=== PATIENT | male | born 1950 | race Caucasian/White ===

== ENCOUNTER 2022-12-29 13:32 | Emergency (ER) | payer MEDICARE, OTHER, SELFPAY ==
[2022-12-29 13:38] VITALS: BP 149/84; PULSE 102; RESP 16; TEMP 36.9; O2SAT 96; BMI 33.0
[2022-12-29 15:11] VITALS: BP 133/108; PULSE 107; O2SAT 95
[2022-12-29 16:11] VITALS: BP 136/91; PULSE 86; O2SAT 95
--- NOTE | 2022-12-29 16:11 | ED_ITS ---
Documented by User: VILLA Duque 01/01/23 09:37 HPI - Back Pain/Injury General: Chief Complaint: Back Pain/Injury Stated Complaint: back pain Time Seen by Provider: 12/29/22 15:44 Source: patient Mode of arrival: ambulatory Limitations: no limitations History of Present Illness: MD elicited complaint: back pain Onset (ago): hour(s) Timing: constant Severity: severe Similar Symptoms Previously: No Location: right lower back Radiation: right upper leg Associated symptoms: Reports difficulty walking (secondary to pain); Deny chills, dysuria, fatigue or urinary urgency Work related injury: No Review of Systems Const: Denies: chills, body aches, fatigue or malaise : Denies: dysuria, urinary frequency, urinary urgency or urinary hesitancy Musc: Denies: neck pain, extremity swelling, joint pain, joint swelling, joint redness or joint warmth Neuro: Reports: difficulty walking (secondary to pain); Denies: headache(s), numbness in extremities, weakness in extremities, sensory changes or dizziness Physical Exam Const: COMMON NORMALS: average body habitus, patient oriented x3, no limitations, healthy appearing and well nourished GENERAL APPEARANCE: cooperative and in distress (appears uncomfortable ) ORIENTATION/CONSCIOUSNESS: Yes awake, Yes oriented to person, Yes oriented to place and Yes oriented to time Back/Pelvis: SACRUM: no tenderness COCCYX: no tenderness Extremity: COMMON NORMALS: normal to inspection, full ROM, capillary refill normal, no joint enlargement, no clubbing, cyanosis or edema, no calf tenderness and no pedal edema GENERAL: Yes normal exam except as noted Neuro: COMMON NORMALS: patient oriented x3 SENSORIUM/ORIENTATION: Yes oriented to person, Yes oriented to place and Yes oriented to time Course ED course: Patient is being given IV medications with plan for pain reassessment. Care transferred to LESTER Batres Vital Signs: Vital signs: Vital Signs Temperature 98.5 F 12/29/22 13:38 Pulse Rate 86 12/29/22 18:49 Respiratory Rate 16 12/29/22 13:38 Blood Pressure 135/88 12/29/22 18:49 Pulse Oximetry 96 12/29/22 18:49 Oxygen Delivery Me thod Room Air 12/29/22 18:49 Discharge Plan Discharge Patient Disposition: Home Clinical Impression: Sciatica Condition: Stable Prescriptions: New celecoxib 200 mg capsule 200 mg PO BID Qty: 20 0RF hydrocodone-acetaminophen 5-325 mg tablet 1 tab PO Q6H PRN (Reason: pain) Qty: 12 0RF methocarbamol 750 mg tablet 750 mg PO Q8H PRN (Reason: muscle spasm) Qty: 30 0RF Discharge Orders: Discharge ED (Routine); Ordered 12/29/22 Ordered By: Carlos Silveira Referrals: Juan Carlos Calero MD [Primary Care Provider] - Discharge Diet: Usual diet Discharge Activity: Increase activity as tolerated Patient Instructions: Back Pain (ED), Opioid Safety, Pain Management Activity Restrictions/Additional Instructions: Maintain activity as much as possible. Take medications as directed for pain and muscle spasms. Drink plenty of water with medications. Follow-up with primary care as needed. Return to ED for worsening symptoms such as high fever, inability to hold fluids down, shortness of breath, or new concerns. Sign Out Sign Out Data: Patient Sign Out occurred on 12/29/22 at 17:56. Patient's care was discussed, and care was transferred from to Carlos Silveira. Coding Level of Care Code ED Tomography Technologist for Chg Fwd Documented by User: LESTER Carrasco 12/29/22 19:24 HPI - Back Pain/Injury General: Chief Complaint: Back Pain/Injury Stated Complaint: back pain Time Seen by Provider: 12/29/22 15:44 History of Present Illness: Patient comes in today with complaints of right side sacroiliac pain radiating to his right hip on the outside and then around to his front of his thigh. Patient does have a history of back pain but this is different than his usual back pain. Patient also has a chronic medical history for coronary artery disease and BPH. Patient takes medications rosuvastatin and an injectable for high cholesterol, baby aspirin daily for coronary artery disease, tamsulosin and finasteride for BPH, pantoprazole for GERD, carvedilol for CAD. 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 Patient has worsening pain with movement. Patient denies any other symptoms. Patient stopped smoking nicotine tobacco in 2008, patient does state he uses cannabis daily. Associated symptoms: Deny fever(s), nausea or vomiting Review of Systems General: Reports: 10 or more systems reviewed and unremarkable except in HPI and below Const: Denies: fever(s) Card: Denies: chest pain Resp: Denies: dyspnea GI: Denies: nausea, vomiting, diarrhea or constipation : Denies: flank pain or difficulty urinating Musc: Reports: back pain Skin/Breast: Denies: rash Physical Exam Const: COMMON NORMALS: alert HENMT: COMMON NORMALS: normocephalic HEAD & SCALP: normocephalic Neck/C-Spine: COMMON NORMALS: full ROM Resp: COMMON NORMALS: normal respiratory effort and clear to auscultation bilaterally AUSCULTATION: clear to auscultation bilaterally Cardio: COMMON NORMALS: regular rate and regular rhythm RATE: regular rate RHYTHM: regular rhythm GI: COMMON NORMALS: Soft to palpation and non-tender PALPATION: Yes Soft to palpation : COMMON NORMALS: Yes no CVA tenderness BLADDER/KIDNEY EXAM: Yes no CVA tenderness Back/Pelvis: COMMON NORMALS: no CVA tenderness THORACIC SPINE/UPPER BACK: No thoracic spinal tenderness and No paraspinal muscle tenderness LUMBAR SPINE/LOWER BACK: Yes lumbar spinal tenderness Lumbar spinal tenderness location: L5 and Yes straight leg raise positive right Neuro: SENSORIUM/ORIENTATION: Yes alert Skin: COMMON NORMALS: turgor normal GENERAL SKIN EXAM: turgor normal Course Vital Signs: Vital signs: Vital Signs Temperature 98.5 F 12/29/22 13:38 Pulse Rate 86 12/29/22 18:49 Respiratory Rate 16 12/29/22 13:38 Blood Pressure 135/88 12/29/22 18:49 Pulse Oximetry 96 12/29/22 18:49 Oxygen Delivery Me thod Room Air 12/29/22 18:49 MDM - Back Pain/Injury Medical Decision Making 72-year-old male patient comes in today with complaints of low back pain radiating down his right leg. I received this patient from Carri Lester PA-C. On exam patient has no point tenderness along the thoracic or lumbar spine except at the L5-S1 area. Patient also has some mild tenderness along the right sacroiliac joint. Positive leg lift test on the right. Patient is able to ambulate but with antalgic gait. Differential diagnosis includes intervertebral disc disease, facet arthritis, sciatica, discitis. No signs of infection were noted. Patient was medicated with ketorolac, dexamethasone, morphine, and hydromorphone in the ER with some relief of pain. Patient was able to ambulate. Patient was discharged home with medications to continue pain care with celecoxib, hydrocodone, and methocarbamol. Patient was recommended to follow-up with primary care or return to the ER for worsening symptoms. Patient and family both reported understanding. No radiology studies performed this visit Discharge Plan Discharge Patient Disposition: Home Clinical Impression: Sciatica Condition: Stable Prescriptions: New celecoxib 200 mg capsule 200 mg PO BID Qty: 20 0RF hydrocodone-acetaminophen 5-325 mg tablet 1 tab PO Q6H PRN (Reason: pain) Qty: 12 0RF methocarbamol 750 mg tablet 750 mg PO Q8H PRN (Reason: muscle spasm) Qty: 30 0RF Discharge Orders: Discharge ED (Routine); Ordered 12/29/22 Ordered By: Carlos Silveira Referrals: Juan Carlos Calero MD [Primary Care Provider] - Discharge Diet: Usual diet Discharge Activity: Increase activity as tolerated Patient Instructions: Back Pain (ED), Opioid Safety, Pain Management Activity Restrictions/Additional Instructions: Maintain activity as much as possible. Take medications as directed for pain and muscle spasms. Drink plenty of water with medications. Follow-up with [facility] as needed. Return to ED for worsening symptoms such as high fever, inability to hold fluids down, shortness of breath, or new concerns. Sign Out Sign Out Data: Patient Sign Out occurred on 12/29/22 at 17:56. Patient's care was discussed, and care was transferred from to Carlos Silveira. Coding Level of Care Code ED Tomography Technologist for [facility]
[2022-12-29 16:22] VITALS: O2SAT 98
[2022-12-29] MEDS: ketorolac 30 mg/mL INJ 15 MG IVP (16:22)
[2022-12-29] MEDS: morphine 4 mg/mL SDV 1 mL IVP (16:22)
[2022-12-29] MEDS: dexamethasone 10 mg/mL INJ IV (16:23)
[2022-12-29] MEDS: orphenadrine 30 mg/mL Inj 2 mL 60 MG IV (16:24)
[2022-12-29 17:00] VITALS: BP 132/82; PULSE 81; O2SAT 94
[2022-12-29] MEDS: HYDROmorphone 1 mg/mL INJ 1 mL IVP (17:04)
[2022-12-29 18:49] VITALS: BP 135/88; PULSE 86; O2SAT 96
== END 2022-12-29 18:50 | disposition home or self-care (01) ==
PROVIDERS: Emergency Provider Nurse Practitioner Family; PCP Family Medicine
DX: M54.30 Sciatica, unspecified side (principal)
CPT/HCPCS: 96374; 96375; 99284; J1100; J1170; J1885; J2270; J2360

== ENCOUNTER 2022-12-31 21:36 | Emergency (ER) | payer MEDICARE, OTHER, SELFPAY ==
[2022-12-31 21:41] VITALS: PULSE 113; RESP 20; TEMP 36.6; O2SAT 98; BMI 27.0
--- NOTE | 2022-12-31 21:46 | CTR_ITS ---
PROCEDURE INFORMATION: Exam: CT Abdomen And Pelvis Without Contrast Exam date and time: 12/31/2022 10:03 PM Age: 72 years old Clinical indication: Abdominal pain; Right; Patient HX: C/O severe RT flank/lower back pain. ; Additional info: Right flank/back pain TECHNIQUE: Imaging protocol: Computed tomography of the abdomen and pelvis without contrast. Radiation optimization: All CT scans at this facility use at least one of these dose optimization techniques: automated exposure control; mA and/or kV adjustment per patient size (includes targeted exams where dose is matched to clinical indication); or iterative reconstruction. REPORTING DATA: Count of CT and Cardiac NM exams in prior 12 months: This patient has received 0 known CTs and 0 known cardiac nuclear medicine studies in the 12 months prior to the current study. COMPARISON: No relevant prior studies available. RADIATION DOSE METRICS: Total DLP (mGy-cm): 1962.95 FINDINGS: Lungs: 4 mm and 8 mm right lower lobe nodules. Coronary arteries: Coronary artery calcifications. Liver: Normal. No mass. Gallbladder and bile ducts: Normal. No calcified stones. No ductal dilation. Pancreas: Normal. No ductal dilation. Spleen: Normal. No splenomegaly. Adrenal glands: 1.5 cm right adrenal nodule, Hounsfield units greater than 25. Kidneys and ureters: Normal. No hydronephrosis. Stomach and bowel: Diverticulosis of the colon. No diverticulitis. The stomach and small bowel are unremarkable. No obstruction. Appendix: The appendix is visualized and is normal. Intraperitoneal space: Unremarkable. No free air. No significant fluid collection. Vasculature: Arterial calcifications. No aneurysm. Lymph nodes: Unremarkable. No enlarged lymph nodes. Urinary bladder: Unremarkable as visualized. Reproductive: Enlarged 5.8 cm prostate. Bones/joints: Degenerative changes of the spine. No fracture. Soft tissues: Unremarkable. CT/CT kidney stone [id number] IMPRESSION: 1. No acute findings. 2. Diverticulosis of the colon without diverticulitis. 3. Enlarged prostate. 4. Indeterminate 1.5 cm right adrenal nodule. Consider 12 month follow-up adrenal CT. (Reference: ManriqueBalbina) 5. Pulmonary nodules measuring up to 8 mm. For patients at low risk (minimal or absent history of smoking and of other known risk factors), recommend CT Chest at 3-6 months, then consider CT Chest at 18-24 months. For patients at high risk (history of smoking or of other known risk factors), recommend CT Chest at 3-6 months, then CT Chest at 18-24 months. (Reference: Claudia) References: Claudia Alanis et al. Guidelines for Management of Incidental Pulmonary Nodules Detected on CT Images: From the Fleischner Society 2017. Radiology. 2017;284(1):228-243. References: Deonte MANSFIELD, et al. Management of Incidental Adrenal Masses: A White Paper of the ACR Incidental Findings Committee. J Am Dulce Radiol. 2017;14(8):3300-1505.
--- NOTE | 2022-12-31 21:47 | ED_ITS ---
HPI - Back Pain/Injury General: Chief Complaint: Back Pain/Injury Stated Complaint: Back Pain Time Seen by Provider: 12/31/22 21:39 Source: patient Mode of arrival: ambulatory Limitations: no limitations History of Present Illness: 72-year-old male who states that he does have a history of back pain he was seen here 2 days ago diagnosed sciatica states been on pain meds steroids states he has had no improvement states having severe pain in his right lower back. Denies any midline pain. Denies any difficulty walking no problems with bowel or bladder movements. Rates his pain a 9 out of 10 currently. Associated symptoms: Deny abdominal pain, chills, dysuria, fever(s), nausea or vomiting Review of Systems Const: Denies: fever(s), chills, body aches or change in appetite ENMT: Denies: throat pain or dental pain Card: Denies: chest pain Resp: Denies: dyspnea GI: Denies: abdominal pain, nausea, vomiting or diarrhea : Denies: dysuria Musc: Reports: back pain; Denies: neck pain Skin/Breast: Denies: rash Neuro: Denies: headache(s) Physical Exam Const: COMMON NORMALS: patient oriented x3 HENMT: COMMON NORMALS: normocephalic and atraumatic HEAD & SCALP: normo cephalic and atraumatic Neck/C-Spine: COMMON NORMALS: full ROM and supple Chest: COMMONS NORMALS: normal inspection of the chest Resp: COMMON NORMALS: normal respiratory effort GI: COMMON NORMALS: Normal to inspection, nondistended, normoactive bowel sounds present, Soft to palpation, non-tender and no masses PALPATION: Yes Soft to palpation Back/Pelvis: OTHER: no midline tenderness. No saddle anesthesia Extremity: COMMON NORMALS: normal to inspection and full ROM Neuro: COMMON NORMALS: patient oriented x3, moves all extremities and no focal motor deficits Psych: COMMON NORMALS: mental status grossly normal, Normal thought process present and cooperative THOUGHT PROCESS: Normal thought process present Skin: COMMON NORMALS: no rashes or lesions noted and no wounds GENERAL SKIN EXAM: no rashes or lesions noted Course Vital Signs: Vital signs: Vital Signs Temperature 98 F 12/31/22 21:41 Pulse Rate 104 H 12/31/22 22:18 Respiratory Rate 16 12/31/22 22:18 Blood Pressure 118/94 12/31/22 22:18 Pulse Oximetry 96 12/31/22 22:18 MDM - Back Pain/Injury Medical Decision Making Patient presents with back pain likely sciatica its right side going down his leg he has no midline pain no signs of epidural abscess or cord compression CT scan here is normal he is stable for discharge she is to follow-up with his PCP and return if worsening he understands agrees to plan. Medical Records I reviewed the patient's medical records. Labs I reviewed the patient's lab results. 12/31/22 22:05 12/31/22 22:05 Radiology Impressions Abdomen/Pelvis CT 12/31/22 21:46 IMPRESSION: 1. No acute findings. 2. Diverticulosis of the colon without diverticulitis. 3. Enlarged prostate. 4. Indeterminate 1.5 cm right adrenal nodule. Consider 12 month follow-up adrenal CT. (Reference: Deonte) 5. Pulmonary nodules measuring up to 8 mm. For patients at low risk (minimal or absent history of smoking and of other known risk factors), recommend CT Chest at 3-6 months, then consider CT Chest at 18-24 months. For patients at high risk (history of smoking or of other known risk factors), recommend CT Chest at 3-6 months, then CT Chest at 18-24 months. (Reference: Claudia) References: Claudia H, et al. Guidelines for Management of Incidental Pulmonary Nodules Detected on CT Images: From the Fleischner Society 2017. Radiology. 2017;284(1):228-243. References: Deonte MANSFIELD, et al. Management of Incidental Adrenal Masses: A White Paper of the ACR Incidental Findings Committee. J Am Dulce Radiol. 2017;14(8):1032-3988. Laboratory Results WBC 7.14 10^3/uL (3.29-11.43) 12/31/22 22:05 RBC 5.53 10^6/uL (3.85-5.65) 12/31/22 22:05 Hgb 17.10 g/dL (11.27-16.99) H 12/31/22 22:05 Hct 51.2 % (37-53) 12/31/22 22:05 MCV 92.6 fl (82-101) 12/31/22 22:05 MCH 30.9 pg (27-33) 12/31/22 22:05 MCHC 33.4 g/dL (30-55) 12/31/22 22:05 RDW 14.0 % (12.1-15.1) 12/31/22 22:05 Plt Count 198 10^3/cmm (157-399) 12/31/22 22:05 MPV 10.8 fL (7.4-10.4) H 12/31/22 22:05 Neut % (Auto) 56.7 % 12/31/22 22:05 Lymph % (Auto) 33.5 % 12/31/22 22:05 Beckham % (Auto) 6.9 % 12/31/22 22:05 Eos % (Auto) 2.0 % 12/31/22 22:05 Baso % (Auto) 0.6 % 12/31/22 22:05 Neut # (Auto) 4.06 10^3/uL (1.8-7.7) 12/31/22 22:05 Lymph # (Auto) 2.4 10^3/uL (0.8-4.8) 12/31/22 22:05 Beckham # (Auto) 0.5 10^3/uL (0.2-0.9) 12/31/22 22:05 Eos # (Auto) 0.1 10^3/uL (0.0-0.8) 12/31/22 22:05 Baso # (Auto) 0.0 10^3/uL (0.0-0.1) 12/31/22 22:05 Nucleated RBC % (auto) 0 % 12/31/22 22:05 Nucleated RBCs # 0.0 /100WBC 12/31/22 22:05 Sodium 140 mmol/L (136-145) 12/31/22 22:05 Potassium 4.2 mmol/L (3.5-5.1) 12/31/22 22:05 Chloride 107 mmol/L (98-107) 12/31/22 22:05 Carbon Dioxide 20 mmol/L (22-29) L 12/31/22 22:05 Anion Gap 17.2 (5-19) 12/31/22 22:05 BUN 15 mg/dL (8-23) 12/31/22 22:05 Creatinine 1.2 mg/dL (0.7-1.2) 12/31/22 22:05 GFR Calculation Not Reportable 12/31/22 22:05 Glucose 106 mg/dL (65-115) 12/31/22 22:05 Calculated Osmolality 291 mOsm/kg (285-295) 12/31/22 22:05 Calcium 9.6 mg/dL (8.5-10.5) 12/31/22 22:05 Total Bilirubin 0.4 mg/dL (0.15-1.2) 12/31/22 22:05 AST 15 U/L (0-40) 12/31/22 22:05 ALT 16 U/L (0-41) 12/31/22 22:05 Alkaline Phosphatase 66 U/L (40-130) 12/31/22 22:05 Total Protein 7.5 g/dL (6.6-8.7) 12/31/22 22:05 Albumin 4.3 g/dL (3.5-5.2) 12/31/22 22:05 Globulin 3.2 g/dL (1.3-4.6) 12/31/22 22:05 Urine Color Yellow (Yellow) 12/31/22 22:30 Urine Appearance Clear (CLEAR) 12/31/22 22:30 Urine pH 5 (5-7) 12/31/22 22:30 Ur Specific [place] 1.020 (1.005-1.030) 12/31/22 22:30 Urine Protein Neg (Negative) 12/31/22 22:30 Urine Glucose (UA) Norm (Normal) 12/31/22 22:30 Urine Ketones Negative (Negative) 12/31/22 22:30 Urine Blood Neg (Negative) 12/31/22 22:30 Urine Nitrate Negative (Negative) 12/31/22 22:30 Urine Bilirubin 1+ (Negative) H 12/31/22 22:30 Urine Urobilinogen 1 mg/dL (Negative) H 12/31/22 22:30 Ur Leukocyte Esterase Negative (Negative) 12/31/22 22:30 All radiology interpretation(s) finalized by discharge Discharge Plan Discharge Patient Disposition: Home Clinical Impression: Sciatica Condition: Stable Prescriptions: No Action celecoxib 200 mg capsule 200 mg PO BID Qty: 20 0RF hydrocodone-acetaminophen 5-325 mg tablet 1 tab PO Q6H PRN (Reason: pain) Qty: 12 0RF methocarbamol 750 mg tablet 750 mg PO Q8H PRN (Reason: muscle spasm) Qty: 30 0RF Discharge Orders: Discharge ED (Routine); Ordered 12/31/22 Ordered By: Brandon Thomas Referrals: Juan Carlos Calero MD [Primary Care Provider] - 1-3 days Discharge Diet: Advance as tolerated Discharge Activity: As per PT/OT instructions Patient Instructions: Sciatica (ED) Coding Level of Care Code ED Hvac Service Technician for [facility] R Woodward
[2022-12-31] MEDS: HYDROmorphone 1 mg/mL INJ 1 mL IVP (21:56)
[2022-12-31] MEDS: ondansetron 2 mg/ML SDV 2 mL 4 MG IVP (21:57)
[2022-12-31 22:16] LABS: Basophils % 0.6 %; Eosinophils # 0.1 10^3/uL (0.0-0.8); Hematocrit 51.2 % (37-53); Lymphocytes # 2.4 10^3/uL (0.8-4.8); Lymphocytes % 33.5 %; Mean Corpuscular HGB Conc 33.4 g/dL (30-55); Mean Corpuscular Hemoglobin 30.9 pg (27-33); Mean Corpuscular Volume 92.6 fl (82-101); Mean Platelet Volume 10.8 fL (7.4-10.4); Monocytes # 0.5 10^3/uL (0.2-0.9); Monocytes % 6.9 %; Neutrophils # 4.06 10^3/uL (1.8-7.7); Neutrophils % 56.7 %; Nucleated Red Blood Cells % 0 %; Platelet Count 198 10^3/cmm (157-399); Red Blood Count 5.53 10^6/uL (3.85-5.65); White Blood Count 7.14 10^3/uL (3.29-11.43)
[2022-12-31 22:18] VITALS: BP 118/94; PULSE 104; RESP 16; O2SAT 96
[2022-12-31] MEDS: sodium chloride 0.9% 1,000 ML 999 ML IV (22:23)
[2022-12-31] MEDS: morphine 4 mg/mL SDV 1 mL IVP (22:23)
[2022-12-31 22:35] LABS: Alanine Aminotransferase 16 U/L (0-41); Albumin Level 4.3 g/dL (3.5-5.2); Alkaline Phosphatase 66 U/L (40-130); Anion Gap 17.2 (5-19); Aspartate Amino Transferase 15 U/L (0-40); Blood Urea Nitrogen 15 mg/dL (8-23); Calcium 9.6 mg/dL (8.5-10.5); Carbon Dioxide 20 mmol/L (22-29); Chloride 107 mmol/L (98-107); Globulin 3.2 g/dL (1.3-4.6); Glucose 106 mg/dL (65-115); Osmolality Calculated 291 mOsm/kg (285-295); Potassium 4.2 mmol/L (3.5-5.1); Sodium 140 mmol/L (136-145); Total Bilirubin 0.4 mg/dL (0.15-1.2); Total Protein 7.5 g/dL (6.6-8.7)
[2022-12-31 22:42] LABS: Add Urine Microscopic? NO; Charge for UA Resulting for Rev
[2022-12-31 22:45] LABS: Bilirubin Urine 1+ (Negative); Blood Urine Neg (Negative); Glucose Urine UA Norm (Normal); Ketones Urine Negative (Negative); Leukocyte Esterase Urine Negative (Negative); Nitrate Urine Negative (Negative); Protein Urine Neg (Negative); Urine Appearance Clear (CLEAR); Urine Color Yellow (Yellow); Urobilinogen Urine 1 mg/dL (Negative); pH Urine 5 (5-7)
[2022-12-31] MEDS: dexamethasone 10 mg/mL INJ IVP (23:13)
[2022-12-31 23:27] VITALS: BP 118/94; PULSE 104; RESP 16; TEMP 36.6; O2SAT 96
== END 2022-12-31 23:28 | disposition home or self-care (01) ==
PROVIDERS: Emergency Provider Emergency Medicine; PCP Family Medicine
DX: M54.30 Sciatica, unspecified side (principal)
CPT/HCPCS: 74176; 80053; 81003; 85025; 96361; 96374; 96375; 99285; J1100; J1170; J2270; J2405; J7030

== ENCOUNTER 2023-01-02 20:45 | Emergency (ER) | payer MEDICARE, OTHER, SELFPAY ==
[2023-01-02 20:57] VITALS: BP 170/93; PULSE 102; RESP 16; TEMP 36.6; O2SAT 93; BMI 26.3
--- NOTE | 2023-01-02 22:18 | CTR_ITS ---
PROCEDURE INFORMATION: Exam: CT Lumbar Spine Without Contrast Exam date and time: 01/02/2023 11:00 PM Age: 72 years old Clinical indication: Low back pain and sciatica; Right; Patient HX: Severe low back pain radiating down RT lower ext. Recently diagnosed with sciatica. ; Additional info: Back pain with radiculopathy TECHNIQUE: Imaging protocol: Computed tomography of the lumbar spine without contrast. Radiation optimization: All CT scans at this facility use at least one of these dose optimization techniques: automated exposure control; mA and/or kV adjustment per patient size (includes targeted exams where dose is matched to clinical indication); or iterative reconstruction. REPORTING DATA: Count of CT and Cardiac NM exams in prior 12 months: This patient has received [address] and 0 known cardiac nuclear medicine studies in the 12 months prior to the current study. COMPARISON: CT kidney stone [id number] 12/31/2022 10:03 PM RADIATION DOSE METRICS: Total DLP (mGy-cm): 1147.18 FINDINGS: Bones/joints: Slight leftward lumbar curvature. Stable chronic depression of the inferior L4 endplate. No acute compression fracture. Mild anterior degenerative endplate changes at L2-L3 through L4-L5 with mild anterior spurring. The facets are intact with mild degenerative changes. L1-L2: No significant disc bulge or herniation. No severe spinal canal stenosis. No significant neural foraminal narrowing. L2-L3: Trace circumferential disc bulge. Mild ligamentum flavum hypertrophy. Mild central canal stenosis. No foraminal stenosis. L3-L4: Mild circumferential disc bulge. Mild ligamentum flavum hypertrophy. Mild central canal stenosis. Mild bilateral foraminal stenosis. L4-L5: Circumferential disc bulge. Degenerative facets with ligamentum flavum hypertrophy. Severe central canal stenosis. Mild bilateral foraminal stenosis. L5-S1: Trace posterior disc bulge. No foraminal stenosis. No central canal stenosis. Soft tissues: Unremarkable. CT/CT lumbar spine wo con* [id number] IMPRESSION: 1. No fracture or acute findings. 2. Degenerative changes with severe central canal stenosis at L4-L5. 3. No greater than mild foraminal stenosis at any level.
--- NOTE | 2023-01-02 22:20 | W.ED.BACK ---
HPI - Back Pain/Injury General: Chief Complaint: Back Pain/Injury Stated Complaint: pain side of right leg. and back Time Seen by Provider: 01/02/23 21:18 History of Present Illness: Rasheed Cantu is a 72-year-old man that presents to the emergency department with complaints of lumbar back pain that radiates down the right lower extremity. Patient was seen approximately 2 days ago and was treated for sciatica. Patient states that his pain meds have given him some relief but he has run through all of his pain medications and his pain is returned. Patient is tearful and anxious with regards to the pain He describes it as constant deep pain and denies numbness and tingling. He has trialed a TENs unit and this has helped some. Patient reports pain falls along the lateral aspect of the right thigh and past the knee into the calf. Review of Systems General: Reports: 10 or more systems reviewed and unremarkable except in HPI and below Physical Exam Const: COMMON NORMALS: patient oriented x3 HENMT: COMMON NORMALS: normocephalic and atraumatic HEAD & SCALP: normocephalic and atraumatic Neck/C-Spine: COMMON NORMALS: full ROM and supple Chest: COMMONS NORMALS: normal inspection of the chest Resp: COMMON NORMALS: normal respiratory effort GI: COMMON NORMALS: Normal to inspection, nondistended, normoactive bowel sounds present, Soft to palpation, non-tender and no masses PALPATION: Yes Soft to palpation Back/Pelvis: OTHER: no midline tenderness. No saddle anesthesia 5/5 strength in hip flexor, quad, gastroc, anterior tibialis Denies numbness and tingling in the extremity Pain is localized to the L4/L5 distribution Extremity: COMMON NORMALS: normal to inspection and full ROM Neuro: COMMON NORMALS: patient oriented x3, moves all extremities and no focal motor deficits Psych: COMMON NORMALS: mental status grossly normal, Normal thought process present and cooperative THOUGHT PROCESS: Normal thought process present Skin: COMMON NORMALS: no rashes or lesions noted and no wounds GENERAL SKIN EXAM: no rashes or lesions noted Course Vital Signs: Vital signs: Vital Signs Temperature 97.9 F 01/02/23 20:57 Pulse Rate 102 H 01/02/23 20:57 Respiratory Rate 24 H 01/02/23 23:28 Blood Pressure 170/93 01/02/23 20:57 Pulse Oximetry 96 01/02/23 23:28 Oxygen Delivery Me thod Room Air 01/02/23 20:57 MDM - Back Pain/Injury Medical Decision Making Patient was evaluated in the emergency department on the and returns today. Patient presents complaining of lumbar back pain that radiates down the right lower extremity. Patient underwent a CT of the lumbar spine which reveals severe degenerative disc disease with disc osteophyte complex that causes severe central canal stenosis at L4/L5. This correlates clinically with the patient's radiculopathy that is isolated in the right lower extremity. He denies any saddle paresthesias and has no weakness. We were able to decrease his pain with Norflex, Decadron, Toradol, hydromorphone and gabapentin. We were able to achieve adequate pain control. We are going to discharge him home with Medrol Dosepak, Percocet, gabapentin. Patient still has Celebrex and Robaxin at home. Patient is to follow-up with his PCP on Wednesday. Call for an appointment Wednesday. Patient is to return to the emergency department for new, concerning, worsening symptom Labs Radiology Impressions Lumbar Spine CT 01/02/23 22:18 IMPRESSION: 1. No fracture or acute findings. 2. Degenerative changes with severe central canal stenosis at L4-L5. 3. No greater than mild foraminal stenosis at any level. All radiology interpretation(s) finalized by discharge Discharge Plan Discharge Patient Disposition: Home Clinical Impression: Lumbar radiculopathy, Degenerative lumbar spinal stenosis, Disc-osteophyte complex, Foraminal stenosis due to intervertebral disc disease Condition: Stable Prescriptions: New oxycodone-acetaminophen [Percocet] 5-325 mg tablet 1 tab PO Q4-5H PRN (Reason: pain) 3 Days Qty: 16 0RF gabapentin 300 mg capsule 300 mg PO Q8H Qty: 30 0RF methylprednisolone [Medrol (Diego)] 4 mg tablets,dose pack See Rx Instructions .ROUTE .COMPLEX Qty: 21 0RF Rx Instructions: orally per package directions No Action celecoxib 200 mg capsule 200 mg PO BID Qty: 20 0RF hydrocodone-acetaminophen 5-325 mg tablet 1 tab PO Q6H PRN (Reason: pain) Qty: 12 0RF methocarbamol 750 mg tablet 750 mg PO Q8H PRN (Reason: muscle spasm) Qty: 30 0RF Discharge Orders: Discharge ED (Routine); Ordered 01/03/23 Ordered By: Venus Madison Referrals: Juan Carlos Calero MD [Primary Care Provider] - Discharge Diet: Advance as tolerated Discharge Activity: Resume usual activity Patient Instructions: Lumbar Radiculopathy (ED), Opioid Safety, Pain Management Activity Restrictions/Additional Instructions: Follow-up with your doctor. Call Wednesday for an appointment. You will likely need an MRI to further evaluate your back and lower extremity complaints Coding Level of Care Code ED Client Engagement Specialist for Maria R Woodward
[2023-01-02] MEDS: gabapentin 300 mg Capsule PO (22:32)
[2023-01-02] MEDS: ketorolac 30 mg/mL INJ 15 MG IVP (22:33)
[2023-01-02] MEDS: orphenadrine 30 mg/mL Inj 2 mL 60 MG IVP (22:34)
[2023-01-02] MEDS: dexamethasone 10 mg/mL INJ IVP (22:36)
[2023-01-02 23:28] VITALS: RESP 24; O2SAT 96
[2023-01-02] MEDS: HYDROmorphone 1 mg/mL INJ 1 mL IVP (23:28)
[2023-01-03] MEDS: gabapentin 300 mg Capsule 600 MG PO (00:12)
[2023-01-03] MEDS: HYDROmorphone 1 mg/mL INJ 1 mL IVP (00:13)
[2023-01-03 01:34] VITALS: BP 156/94; O2SAT 92
== END 2023-01-03 01:04 | disposition home or self-care (01) ==
PROVIDERS: Emergency Provider Nurse Practitioner; PCP Family Medicine
DX: M48.061 Spinal stenosis, lumbar region without neurogenic claudication (principal); M25.78 Osteophyte, vertebrae; M51.16 Intervertebral disc disorders with radiculopathy, lumbar region
CPT/HCPCS: 72131; 96374; 96375; 96376; 99285; J1100; J1170; J1885; J2360

== ENCOUNTER 2023-01-06 12:29 | Outpatient (CLI) | payer MEDICARE, OTHER, SELFPAY ==
--- NOTE | 2023-01-06 13:00 | MR_ITS ---
WS: [id number] MRI LUMBAR SPINE NONCONTRAST HISTORY: lumbar pain, low back pain down RIGHT leg. COMPARISON: CT lumbar spine 01/02/2023 TECHNIQUE: Sagittal and axial multisequence imaging is submitted. Disc and osteophyte encroachment upon the cervical cord at C5-6. Normal lumbar alignment with no compression fractures or marrow edema. Disc spaces and vertebral body heights are well-preserved. Conus terminates normally at L1-2 disc level. L1-L2: Normal. L2-L3: Mild annular disc bulging with mild ligamentum flavum and facet arthritis. Disc encroachment u aleksandr the traversing L3 nerve roots, bilateral. L3-L4: Marked annular disc bulging with ligamentum flavum and facet arthritis. Disc contacts the vent ral thecal sac and the traversing L4 nerve roots in the subarticular recesses. Complete effacement of fat in the RIGHT foramen. Moderate central, bilateral subarticular recess and LEFT foraminal stenosi s. More severe RIGHT foraminal stenosis. L4-L5: Diffuse annular disc bulging with a central disc protrusion. Ligamentum flavum and facet arthr itis. Disc encroaches into the subarticular recesses contacting the L5 nerve roots. Severe central, b ilateral subarticular recess and at least moderate bilateral foraminal stenosis, RIGHT greater than L EFT. There is disc contacting both the L4 and L5 nerve roots at this level. L5-S1: Mild disc bulging. Disc very slightly contacts the S1 nerve roots bilaterally but no displacem ent. No significant stenosis. IMPRESSION: 1. L3-4: Moderate central, bilateral subarticular recess and LEFT foraminal stenosis. More severe RIG HT foraminal stenosis as there is complete effacement of fat in the neural foramen due to disc and fa cet disease. Suspect additional protrusion in the RIGHT foramen. 2. L4-5: Severe central, bilateral subarticular recess and moderate foraminal stenosis, RIGHT greater than LEFT. Disc contacts the L4 and L5 nerve roots. 3. L5-S1: Mild disc contact on the S1 nerve roots. 4. L2-3: Minimal disc encroachment upon the traversing L3 nerve roots.
== END 2023-01-06 12:30 | disposition home or self-care (01) ==
LOC: RAD 12:29
PROVIDERS: PCP Family Medicine; Visit Provider Orthopaedic Surgery
DX: M48.061 Spinal stenosis, lumbar region without neurogenic claudication (principal); M51.9 Unspecified thoracic, thoracolumbar and lumbosacral intervertebral disc disorder; M47.816 Spondylosis without myelopathy or radiculopathy, lumbar region
CPT/HCPCS: 72148

== ENCOUNTER → 2023-01-07 15:04 | Outpatient (BNVA) | payer MEDICARE, OTHER, SELFPAY | PROVIDERS: PCP Family Medicine; Visit Provider Orthopaedic Surgery | DX: M54.16 Radiculopathy, lumbar region (principal); M48.062 Spinal stenosis, lumbar region with neurogenic claudication | CPT/HCPCS: 36415; 72110; 80053; 81003; 85025; 99204 ==

== ENCOUNTER 2023-01-15 15:04 | Inpatient (IN) | payer MEDICARE, OTHER, SELFPAY ==
[2023-01-15] VITALS (27 sets, daily range): BP systolic 104–177; BP diastolic 68–119; PULSE 66–115; RESP 16–22; TEMP 36.1–37.1; O2SAT 85–99; BMI 26.3
--- NOTE | 2023-01-15 | XR_ITS ---
WS: [id number] Lumbar spine, C ARM fluoroscopy, 01/15/2023 Clinical Data: decompression, or pic Comparison: Lumbar spine, 01/07/2023 Findings: Dr. Troy performed a lumbar decompression. Impression: Lumbar decompression.
[2023-01-15] MEDS: ondansetron 2 mg/ML SDV 2 mL 4 MG IVP ×2 (08:33→13:42)
[2023-01-15] MEDS: sodium chloride 0.9% 1,000 ML 30 ML IV (08:33)
[2023-01-15] MEDS: HYDROmorphone 1 mg/mL INJ 1 mL 0.5 MG IVP ×6 (08:33→13:15)
[2023-01-15] MEDS: acetaminophen 1,000 MG/100 ML PIGGYBACK 400 MG IV (09:21)
--- NOTE | 2023-01-15 09:59 | W.PM.OPSUD ---
Surgery/Procedure H&P Update DATE OF PROCEDURE: January 15, 2023 DATE H&P PERFORMED: 01/07/23 H&P UPDATE INFORMATION: I have reviewed H&P completed within last 30 days, I have examined patient prior to procedure and No changes to prior documentation PREOP DIAGNOSIS: Lumbar stenosis with neurogenic claudication PLANNED PROCEDURE: Operation Date: 01/15/23 11:10 Proposed Procedures p Lumbar Spine Decompression Lumbar Decompression(Right) - Germán Troy DO
--- NOTE | 2023-01-15 10:07 | ANES.PREANE2 ---
Pre-Anesthetic Assessment Height/Weight: Height 1.88 m Weight 93 kg Temp Pulse Resp BP Pulse Ox O2 Del Method 97.2 F L 79 20 H 131/89 98 Room Air 01/15/23 08:15 01/15/23 09:07 01/15/23 09:07 01/15/23 09:07 01/15/23 09:07 01/15/23 09:07 Preop Diagnosis: Lumbar stenosis with neurogenic claudication Operation Date: 01/15/23 11:10 Proposed Procedures p Lumbar Spine Decompression Lumbar Decompression(Right) - Germán Troy DO Familial anesthetic complications: none Was Beta Mamie taken within 24 hours: Yes Was Clonidine taken within 24 hours: N/A Last intake: Intake Last Liquid Date 01/14/23 Last Liquid Time 20:00 Last Solid Date 01/14/23 Last Solid Time 16:30 Social Tobacco and No alcohol Exam alert, oriented x 3 and regular rate & rhythm Airway Submandibular: within normal limits Cervical ROM: within normal limits Mallampati: Class II Dentition: false Pulmonary Chronic Obstructive Pulmonary Disease CV/HEM Coronary Artery Disease (stentX2), Hypertension and Myocardial Infarction Chronic Renal Insufficiency GI Gastroesophageal Reflux Disease Metabolic Hyperlipidemia [facility] Lower Back Pain and Osteoarthritis/DJD appears in acute distress, writhing in pain Anesthetic Plan ASA status: 3 Anesthesia: General Medications/Allergies Home Medications Medication Instructions Recorded Confirmed Last Taken Type alirocumab 75 mg/mL subcutaneous See Rx Instructions .Route .COMPLEX 01/14/23 01/14/23 01/08/23 History pen injector (Praluent Pen) aspirin 81 mg tablet,delayed 81 mg PO DAILY 01/14/23 01/14/23 Unknown History release carvedilol 3.125 mg tablet 3.125 mg PO 1XD 01/14/23 01/14/23 01/15/23 History finasteride 5 mg tablet 5 mg PO 1XD 01/14/23 01/14/23 01/14/23 History fluticasone fur. 100 mcg-umeclid See Rx Instructions .Route .COMPLEX 01/14/23 01/14/23 01/15/23 History 62.5 mcg-vilant 25 mcg inhalat.powder (Trelegy Ellipta) ketoconazole 2 % shampoo See Rx Instructions .Route .COMPLEX 01/14/23 01/14/23 01/13/23 History oxycodone-acetaminophen 10 mg-325 10 tab PO DIRECTED PRN Pain 01/14/23 01/14/23 01/15/23 History mg tablet (Scale Score 7-10) pantoprazole 40 mg tablet,delayed 40 mg PO 1XD 01/14/23 01/14/23 01/15/23 History release rosuvastatin 20 mg tablet 20 mg PO 1XD 01/14/23 01/14/23 01/14/23 History tamsulosin 0.4 mg capsule 0.4 mg PO 1XD 01/14/23 01/14/23 01/14/23 History Allergies Allergy/AdvReac Type Severity Reaction Status Date / Time No Known Allergies Allergy Verified 01/14/23 14:15 Current Medications Generic Name Dose Route Start Last Admin Trade Name Freq PRN Reason Stop Dose Admin Hydromorphone HCl 0.5 mg 01/15/23 08:10 01/15/23 08:57 Hydromorphone 1 Mg/Ml Inj 1 Ml IVP 0.5 mg ONCE PRN Administration For preop pain/anxiety Sodium Chloride 1,000 mls @ 30 mls/hr 01/15/23 08:15 01/15/23 08:33 Sodium Chloride 0.9% IV 01/16/23 08:14 30 mls/hr .Q24H DANELLE Administration Ondansetron HCl 4 mg 01/15/23 08:10 01/15/23 08:33 Ondansetron 2 Mg/Ml Sdv 2 Ml IVP 4 mg ONCE PRN Administration NAUSEA AND VOMITING Data Anesthesia Cardiac Studies: No Data to Display
[2023-01-15] MEDS: ceFAZolin 2,000 MG in sodium chloride 0.9% (plus) 50 ML 100 MG IV ×2 (10:56→19:40)
[2023-01-15] MEDS: lidocaine-epi 1% 20 mL INJ INJECTION (11:19)
[2023-01-15] MEDS: thrombin 5,000 unit SDV 5000 UNIT XX (11:31)
--- NOTE | 2023-01-15 12:19 | PM.OP ---
Operative Report Date of procedure: January 15, 2023 Pre-op diagnosis: Lumbar stenosis with neurogenic claudication Post-op diagnosis: same Procedure done: 1. L3-4 laminectomy with partial facetectomy 2. L4-5 laminectomy with partial facetectomy Surgeon: Germán Troy DO Estimated blood loss (mL): 10 Procedure: 1. L3-4 laminectomy with partial facetectomy 2. L4-5 laminectomy with partial facetectomy Patient is brought to the operative suite. After undergoing anesthesia they are placed in the prone position. All areas of impingement are well padded. Patient is then prepped and draped in the normal sterile fashion. A skin incision is made over the L3/4 level. This is confirmed under c-arm guidance. A series of dilators are passed and the tubular retractor is docked on the L3 lamina. A bovie is used to clear the soft tissue off the lamina and the L 3/4 facet joint. A high speed erika is then used to perform the laminectomy and take down the medial aspect of the L 3/4 facet joint. A kerrison rongeure was then used to take down the remaining lamina and smooth the edge of the laminectomy up to the point where the ligamentum flavum attaches. Attention was then brought to the medial aspect of the facet joint. The remaining medial aspect of the superior and inferior aspect of the facet joint were taken down with the kerrison from the pedicle of L3 to L 4. The facet joint had significant hypertrophy. Attention was then brought to the Ligamentum Flavum. The ligament was taken down from the lamina of L3 to L4 and out medially to the remaining facet joint. The ligament was thick. The dura was then exposed. The dura was in good repair. The L3 nerve was then traced with a curette out the L3/4 foramen and found to be adequately decompressed. The L4 nerve was traced with a curette around the L4 pedicle. The lateral recess was opened with a kerrison helping to further decompress the L4 nerve. Wound is then irrigated copiously with saline and surgiflo is used to stop any bleeding. The tubular retractor is removed and the A skin incision is made over the L4/5 level. This is confirmed under c-arm guidance. A series of dilators are passed and the tubular retractor is docked on the L4 lamina. A bovie is used to clear the soft tissue off the lamina and the L 4/5 facet joint. A high speed erika is then used to perform the laminectomy and take down the medial aspect of the L 4/5 facet joint. A kerrison rongeure was then used to take down the remaining lamina and smooth the edge of the laminectomy up to the point where the ligamentum flavum attaches. Attention was then brought to the medial aspect of the facet joint. The remaining medial aspect of the superior and inferior aspect of the facet joint were taken down with the kerrison from the pedicle of L4 to L 5. The facet joint had significant hypertrophy. Attention was then brought to the Ligamentum Flavum. The ligament was taken down from the lamina of L4 to L5 and out medially to the remaining facet joint. The ligament was thick. The dura was then exposed. The dura was in good repair. The L4 nerve was then traced with a curette out the L4/5 foramen and found to be adequately decompressed. The L5 nerve was traced with a curette around the L5 pedicle. The lateral recess was opened with a kerrison helping to further decompress the L5 nerve. Wound is then irrigated copiously with saline and surgiflo is used to stop any bleeding. The tubular retractor is removed and the wound is closed with vicryl and monocryl suture. Glue is then used to protect the wound. A sterile dressing is then placed. Patient was then placed in the supine position and transferred to the PACU in stable condition.
[2023-01-15] MEDS: fentaNYL 50 mcg/mL INJ 2mL IVP ×2 (12:40→12:45)
[2023-01-15] MEDS: ketorolac 30 mg/mL INJ IVP ×2 (13:43→22:43)
[2023-01-15] MEDS: morphine 4 mg/mL SDV 1 mL 2 MG IVP (13:45)
[2023-01-15] MEDS: oxyCODONE 5 mg IR Tab/Cap PO ×2 (13:49→19:40)
[2023-01-15] MEDS: diazePAM 5 mg Tablet PO (13:56)
--- NOTE | 2023-01-15 14:44 | ANE.PACU2 ---
Inpatient post-anesthesia follow up: Airway intact: Yes Vital signs: Temperature 97 F Pulse Rate 66 Respiratory Rate 20 Blood Pressure 115/78 Pulse Oximetry 94 Oxygen Delivery Me thod Room Air Oxygen Flow Rate Fraction of Inspir ed Oxygen Hydration adequate: Yes Nausea and vomiting: No Pain level: 5 Mental status: Baseline
[2023-01-15] MEDS: oxyCODONE 10 mg ER (12 HR) Tablet PO (17:00)
[2023-01-15] MEDS: docusate sodium 100 mg Capsule PO (17:00)
[2023-01-15] MEDS: lactated ringers 1,000 ML 90 ML IV (17:49)
[2023-01-15] MEDS: atorvastatin 40 mg Tablet PO (19:40)
[2023-01-15] MEDS: budesonide 0.5 mg/2 mL Neb INHALATION (20:34)
[2023-01-16 00:11] VITALS: RESP 20
[2023-01-16] MEDS: oxyCODONE 5 mg IR Tab/Cap PO ×2 (00:11→06:50)
[2023-01-16] MEDS: lactated ringers 1,000 ML 90 ML IV (04:48)
[2023-01-16] MEDS: ceFAZolin 2,000 MG in sodium chloride 0.9% (plus) 50 ML 100 MG IV (04:48)
[2023-01-16 05:00] VITALS: BP 100/59; PULSE 78; RESP 18; TEMP 36.2; O2SAT 93
[2023-01-16] MEDS: calcium carbonate 500 mg Chew Tablet PO (05:29)
[2023-01-16 06:50] VITALS: RESP 17
[2023-01-16 08:00] VITALS: BP 105/65; PULSE 74; RESP 20; TEMP 36.4; O2SAT 94
[2023-01-16 08:12] VITALS: PULSE 78; RESP 16; O2SAT 93
[2023-01-16] MEDS: docusate sodium 100 mg Capsule PO (08:55)
[2023-01-16] MEDS: tamsulosin 0.4 mg Capsule PO (08:55)
[2023-01-16] MEDS: carvedilol 3.125 mg Tablet PO (08:55)
[2023-01-16] MEDS: finasteride 5 mg Tablet PO (08:55)
[2023-01-16] MEDS: pantoprazole DR 40 mg Tablet PO (08:55)
--- NOTE | 2023-01-16 09:16 | PM.DCS ---
Discharge Providers Date of Admission: 01/15/23 15:04 Date of Discharge: January 16, 2023 Attending Provider at Admission: Germán Troy DO Attending Provider at Discharge: Germán Troy DO Primary Care Provider: Juan Carlos Calero MD Reason for Visit Reason for Visit: M48.062 Physical Exam Narrative: Patient right leg pain is completely gone patient's back pain is much improved. He is in significantly less pain at this point. Plan will be to discharge him home today. Discharge Data Studies Completed and Pending Completed Studies During Hospitalization Category Date Time Status XR lumbar spine 1V [id number] Routine Exams 01/15/23 Completed Vitals Last Vital Signs Temp 97.1 F L 01/16/23 05:00 Pulse 78 01/16/23 08:12 Resp 16 01/16/23 08:12 BP 100/59 01/16/23 05:00 Pulse Ox 93 01/16/23 08:12 O2 Del Method Room Air 01/16/23 08:12 O2 Flow Rate 2 01/15/23 20:35 Discharge Plan Discharge Patient Disposition: Home Condition: Stable Prescriptions: New oxycodone 10 mg tablet 10 - 20 mg PO Q4H PRN (Reason: pain) 7 Days Qty: 40 0RF Continued aspirin 81 mg tablet,delayed release (DR/EC) 81 mg PO DAILY ketoconazole 2 % shampoo See Rx Instructions .ROUTE .COMPLEX Rx Instructions: see directions carvedilol 3.125 mg tablet 3.125 mg PO 1XD oxycodone-acetaminophen 10-325 mg tablet 10 tab PO DIRECTED PRN (Reason: Pain (Scale Score 7-10)) tamsulosin 0.4 mg capsule 0.4 mg PO 1XD pantoprazole 40 mg tablet,delayed release (DR/EC) 40 mg PO 1XD finasteride 5 mg tablet 5 mg PO 1XD rosuvastatin 20 mg tablet 20 mg PO 1XD Praluent Pen 75 mg/mL pen injector See Rx Instructions .ROUTE .COMPLEX Rx Instructions: as directed Trelegy Ellipta 100-62.5-25 mcg blister with device See Rx Instructions .ROUTE .COMPLEX Rx Instructions: see directions Discharge Orders: Discharge Order (Routine); Ordered 01/16/23 Ordered By: Germán Troy Discharge Diet: Advance as tolerated Discharge Activity: Limit activity as instructed Activity Restrictions/Additional Instructions: [facility] The following is a list of instructions, from your provider, to follow upon your discharge to ensure you have the optimal recovery from your recent injury orsurgery. Follow-up care is a ortega part of your treatment and safety. Be sure to make and go to all appointments, and call your doctor if you are having problems. If you do not already have a follow-up appointment made, call Dr. Troy office in the next 1-3 days to make follow up appointment for 2 weeks at [phone]. It is also a good idea to know your test results and keep a list of the medicines you take. Medications will be prescribed for you at your provider's discretion. These medications are to be used as instructed; if they are taken more often that prescribed they will not be refilled early and in most cases will not be refilled at all. > When a refill is needed,you should contact [facility] 2-3 business days before your prescription runs out. Medications will NOT be refilled by clinical operations specialist providers after hours! > Many pain medications contain Tylenol (Acetaminophen). Do not consume more than 4,000 mg of Tylenol per day in total with any combination ofmedications. > Pain medications can cause constipation. Please use an over the counter stool softener as directed, while taking pain medications. Consulty our local pharmacist with questions or recommendations on stool softeners. If constipation persists, contact our office or your primary care provider. > While under our care,you are not to receive pain medications or other controlled substances from any other provider unless our office is notified and approves. Any attempts to do so will result in refusal to prescribe any further pain medications and possible dismissal from our practice. ? Your wound and/or dressing should remain clean and dry for 2 days after surgery. On postoperative day 2 (48 hours after your surgery) the dressing (if present) should be removed and it is okay to shower and get the incision wet. Pad dry afterwards. No further dressing should be required from that point on. Do not put any creams or ointments on theincision > It is normal for there to be a small amount of discharge (bloody or blood tinged) present from a surgical wound for the first 1-3days. > The wound should be examined twice a day for signs of infection. Mild redness or bruising is to be expected but indications that an infection maybe starting would include; An increase in redness, swelling, or discharge, a foul odor present around the incision, and/or a fever greater than 101 ?F ? Showering is permitted, however we ask that you do not take a bath, sit in a whirlpool / Jacuzzi, or go swimming for 1 month. For only the first 2 days after surgery, lt wilt be necessary for you to cover your wound/dressing with plastic and tape to keep it dry. ? Walking is essential for the healing process after surgery. We would like you to slowly advance your walking. This should be done on relatively flat clear ground (inside or out) or can be done on a treadmill. Remember this goal does not have to happen all at once, slowly increase your distance and duration. This can be broken into more more than one walk per day as tolerated. Patients who walk as directed after surgery rarely require Physical Therapy. In the unlikely event this issue arises your provider will direct hospital staff to make the appropriate arrangements. ? No lifting over 5 pounds {a gallon of milk) or bending/twisting until further notice. Each of these activities places an unnecessary amount of stress onto the body and can impede the delicate healing process. > Instead of bending at the waist, keep your back straight and bend at the knees. > Instead of twisting your torso, keep your back straight and turn your entire body with your feet. ? You may sleep in any position which makes you comfortable. Many patients find comfort sleeping in a reclining chair. It is not abnormal to have difficulty sleeping for the first several weeks following your surgery. We recommend trying Benadry! or Tylenol PM as directed to help with your sleeping difficulties. Both medications are over the counter and available withoutprescription. ? NO SMOKING!!! Smoking dramatically increases the probability of developing postoperative wound infections. ? Common complaints after lumbar and/or thoracic spine surgery include, but are not limited to: numbness and/or tingling in the legs, pain around the incision and surrounding tissues, muscle spasms, or stiffness of the middle to low back. Contact our office if these symptoms persist or if an acute change occurs. ? No driving for the first 3-5days, and not while taking narcotics until seen at your follow-up appointment and cleared. There are no restrictions for riding on short trips, however if you take a longer trip, arrangements should be made to make regular stops to get out of the vehicle and stretch . ? Swelling is an unfortunate event that will take place with any surgery and is the primary source of your postoperative discomfort. While walking and regular approved activities helps control inflammation, there are additional steps you can take to minimizeswelling. > Place ice over the surgical site and surrounding tissue for twenty minutes, followed by applying a low/medium heat (heating pad) for an additional twenty minutes every 1-2 hours as needed for painrelief. > You may use of over the counter anti-inflammatory medications (Ibuprofen, Motrin, Aleve, Advil, etc) as directed on the package label. These types of medicines wm significantly reduce the amount of discomfort you experience after surgery from swelling. It should be noted that if you have and allergy to any of these medications, or a history of ulcers or kidney disease you should consult you primary care provider prior to starting these medications. Discharge Attestations Time Spent in Discharge Care*: less than 30 min Quality Metrics Clinical Quality Measures [ No reported AMI, CVA or VTE this stay] Coding Level of Care Code Acute Code for Chg Fwd
[2023-01-16] MEDS: oxyCODONE 10 mg ER (12 HR) Tablet PO (10:36)
[2023-01-16 11:04] VITALS: BP 105/65; PULSE 78; RESP 16; TEMP 36.4; O2SAT 93
== END 2023-01-16 11:05 | disposition home or self-care (01) | DRG 517 ==
LOC: MEDSURG 15:05
PROVIDERS: Admitting Provider Orthopaedic Surgery; PCP Family Medicine; Visit Provider Orthopaedic Surgery
PROC: 01NB0ZZ Release Lumbar Nerve, Open Approach (ICD-10-PCS; CPT 63005; principal; 2023-01-15 10:40)
DX: M48.062 Spinal stenosis, lumbar region with neurogenic claudication (principal); J44.9 Chronic obstructive pulmonary disease, unspecified; I25.10 Atherosclerotic heart disease of native coronary artery without angina pectoris; Z95.5 Presence of coronary angioplasty implant and graft; I10 Essential (primary) hypertension; I25.2 Old myocardial infarction; K21.9 Gastro-esophageal reflux disease without esophagitis; E78.5 Hyperlipidemia, unspecified
CPT/HCPCS: 72020; 76000; 94640; 97116; 97161; J0131; J0690; J1100; J1170; J1885; J2270; J2371; J2405; J2704; J2710; J3010; J3490; J7030; J7120; J7626; P9045

== ENCOUNTER → 2023-01-28 10:23 | Outpatient (BNVA) | payer MEDICARE, OTHER, SELFPAY | PROVIDERS: PCP Family Medicine; Visit Provider Physician Assistant | DX: Z47.89 Encounter for other orthopedic aftercare (principal) | CPT/HCPCS: 99024 ==

== ENCOUNTER → 2023-03-11 09:42 | Outpatient (BNVA) | payer MEDICARE, OTHER, SELFPAY | PROVIDERS: PCP Family Medicine; Visit Provider Orthopaedic Surgery | DX: Z47.89 Encounter for other orthopedic aftercare (principal) | CPT/HCPCS: 99024 ==

== ENCOUNTER → 2023-04-22 07:59 | Outpatient (BNVA) | payer MEDICARE, OTHER, SELFPAY | PROVIDERS: PCP Family Medicine; Visit Provider Orthopaedic Surgery | DX: Z98.890 Other specified postprocedural states (principal) | CPT/HCPCS: 99024 ==

== ENCOUNTER 2023-05-24 09:27 | Outpatient (CLI) | payer MEDICARE, OTHER, SELFPAY ==
--- NOTE | 2023-05-24 09:32 | CT_ITS ---
WS: [id number] CT chest wo con [id number] HISTORY: LUNG NODULES TECHNIQUE: Axial imaging performed through the thorax. Coronal and sagittal reformats are submitted. [facility] use at least one of these dose optimization techniques: automated exposure control; mA and/or kV adjustment per patient size (includes targeted exams where dose is mat ched to clinical indication); or iterative reconstruction. CONTRAST: None DLP: 425.01 mGy.cm COMPARISON: CT 12/31/2022 Lungs and central airway: Moderate centrilobular emphysema. Previously described noncalcified nodules in the RIGHT lower lobe on the CT from 12/31/2022 are reidentified with no increase in size. The lar gest measures 8 mm on image 52 of series 4. The imaging of the additional lungs demonstrates addition al very small nodules throughout the RIGHT lung and LEFT upper lobe. These nodules are less than 8 mm in size. No prior studies to confirm long-term stability. Pleura: Normal. No pleural effusion. Heart and pericardium: Normal size heart with no pericardial effusion. Mediastinum and [place]: Small mediastinal and hilar lymph nodes. No adenopathy. Vessels: Mild atherosclerosis aorta. Normal size aorta and pulmonary artery. There are scattered la nary artery calcifications. Chest wall and lower neck: Subcentimeter, 8 mm LEFT thyroid nodule. No additional soft tissue abnorma lities. Upper abdomen: Mild bilateral adrenal adenomas. Hounsfield units are less than 10 within each adrenal mass. RIGHT adrenal adenoma measures 1.5 x 1.0 cm. LEFT adrenal adenoma measures 0.9 x 1.8 cm. Stabl e since 12/31/2022. Osseous structures: Mild increase in thoracic kyphosis. IMPRESSION: 1. No interval change in the previously described subcentimeter nodules at the RIGHT lung base. Jose tional nodules were identified on today's dedicated chest CT. These additional nodules are are less t nur 8 mm. These will need to be followed for long-term stability. Multiple indeterminate pulmonary nodules. The largest one is solid and measures 8 mm. In a high-risk patient with multiple nodules, if the most suspicious nodule is solid and measures 6-8 mm, recommend CT at 3-6 months. As not all of the nodules have been reimaged at the 6 months recommend additional 6 -month noncontrast chest CT. If stable, then CT at 18-24 months. Follow-up intervals may vary accordi ng to size and risk. 2. Bilateral adrenal adenomas. 3. Centrilobular emphysema. 4. Subcentimeter LEFT thyroid nodule. A solitary 8 mm thyroid nodule in the left lobe has no suspicious features. In the absence of clinica l risk factors for thyroid cancer, this finding is highly likely benign and no additional imaging or follow-up is recommended.
== END 2023-05-24 09:28 | disposition home or self-care (01) ==
LOC: RAD 09:28
PROVIDERS: PCP Family Medicine; Visit Provider Family Medicine
DX: R91.1 Solitary pulmonary nodule (principal); J43.2 Centrilobular emphysema
CPT/HCPCS: 71250

== ENCOUNTER → 2023-08-10 15:41 | Outpatient (BNVA) | payer MEDICARE, OTHER, SELFPAY | PROVIDERS: PCP Family Medicine; Visit Provider Internal Medicine Cardiovascular Disease | DX: I10 Essential (primary) hypertension (principal); I25.10 Atherosclerotic heart disease of native coronary artery without angina pectoris; E78.5 Hyperlipidemia, unspecified; R06.09 Other forms of dyspnea | CPT/HCPCS: 93005; 99204 ==

== ENCOUNTER → 2024-01-24 15:07 | Outpatient (BNVA) | payer MEDICARE, OTHER, SELFPAY | PROVIDERS: PCP Family Medicine; Visit Provider Internal Medicine Cardiovascular Disease | DX: I25.10 Atherosclerotic heart disease of native coronary artery without angina pectoris (principal); Z98.890 Other specified postprocedural states; I10 Essential (primary) hypertension; E78.5 Hyperlipidemia, unspecified; G47.33 Obstructive sleep apnea (adult) (pediatric); R42 Dizziness and giddiness; Z87.891 Personal history of nicotine dependence; G62.9 Polyneuropathy, unspecified | CPT/HCPCS: 99213 ==

== ENCOUNTER → 2024-02-16 08:08 | Outpatient (BNVA) | payer MEDICARE, OTHER, SELFPAY | PROVIDERS: PCP Family Medicine; Visit Provider Nurse Practitioner Family | DX: L21.8 Other seborrheic dermatitis (principal); L82.1 Other seborrheic keratosis; L91.8 Other hypertrophic disorders of the skin; L57.8 Other skin changes due to chronic exposure to nonionizing radiation; Z08 Encounter for follow-up examination after completed treatment for malignant neoplasm; Z85.828 Personal history of other malignant neoplasm of skin; D48.5 Neoplasm of uncertain behavior of skin; L57.0 Actinic keratosis | CPT/HCPCS: 11102; 17000; 99204 ==

== ENCOUNTER → 2024-03-14 07:47 | Outpatient (BNVA) | payer MEDICARE, OTHER, SELFPAY | PROVIDERS: PCP Family Medicine; Visit Provider Dermatology | DX: C44.619 Basal cell carcinoma of skin of left upper limb, including shoulder (principal); C44.319 Basal cell carcinoma of skin of other parts of face | CPT/HCPCS: 13132; 17311; 99213 ==

== ENCOUNTER → 2024-08-10 10:51 | Outpatient (BNVA) | payer MEDICARE, OTHER, SELFPAY | PROVIDERS: PCP Family Medicine; Visit Provider Nurse Practitioner Family | DX: L21.8 Other seborrheic dermatitis (principal); L57.8 Other skin changes due to chronic exposure to nonionizing radiation; X32.XXXA Exposure to sunlight, initial encounter; L81.4 Other melanin hyperpigmentation; L73.8 Other specified follicular disorders; L82.1 Other seborrheic keratosis; Z08 Encounter for follow-up examination after completed treatment for malignant neoplasm; Z85.828 Personal history of other malignant neoplasm of skin; L57.0 Actinic keratosis | CPT/HCPCS: 17000; 99214 ==

== ENCOUNTER 2024-08-31 14:12 | Outpatient (CLI) | payer MEDICARE, SELFPAY ==
--- NOTE | 2024-08-31 15:00 | USCV_ITS ---
Rasheed Cantu Age: 73 Gender: M : 1950 Exam Date: 08/31/2024 14:36 Ordering Phys: Guerda Martínez MD ([email or web address]) Technologist: Exam [place] [facility] [place]: SOB BP: / HR: 90 Rhythm: Sinus Technical Quality: Adequate MEASUREMENTS (Male / Female) Normal Values 2D ECHO LV Diastolic Diameter PLAX 5.4 cm 4.2 - 5.9 / 3.9 - 5.3 cm IVS Diastolic Thickness 1.4 cm 0.6 - 1.0 / 0.6 - 0.9 cm IVS Systolic Thickness 1.7 cm LVPW Diastolic Thickness 1.2 cm 0.6 - 1.0 / 0.6 - 0.9 cm LVPW Systolic Thickness 1.8 cm LVOT Diameter 2.0 cm LV Ejection Fraction 2D Teich 64.8 % LV Ejection Fraction MOD 4C 58.6 % LV Ejection Fraction MOD 2C 62.5 % LV Ejection Fraction 2C AL 62.7 % LA Diameter 2.5 cm RA Systolic Volume 4C AL 45.9 ml RA Systolic Volume 4C MOD 42.3 ml Aorta at Sinotubular Diameter 2.7 cm IVC Diameter 1.9 cm M-MODE LA Ao Ratio MM 1.1 AV Cusp Separation MM 2.5 cm DOPPLER AV Peak Velocity 129.0 cm/s LVOT Peak Velocity 71.0 cm/s AV Area Cont Eq vti 2.0 cm squared AV Area Cont Eq pk 1.7 cm squared MV Area PHT 5.3 cm squared Mitral E to A Ratio 0.8 TV Peak Velocity 162.5 cm/s TR Peak Velocity 174.0 cm/s TR Peak Gradient 12.1 mmHg TV Peak E Velocity 67.0 cm/s PV Peak Velocity 91.0 cm/s FINDINGS Left Ventricle Normal left ventricular size, systolic function and wall thickness, with no regional wall motion abnormalities. Left ventricular ejection fraction is estimated at 60 %. Grade I/IV diastolic dysfunction (abnormal relaxation filling pattern), normal to mildly elevated filling pressures. Right Ventricle The right ventricle is normal in size and function. Right Atrium The right atrium is normal in size. Left Atrium The left atrium is normal in size. Mitral Valve Mildly thickened mitral valve. No mitral valve stenosis. Trace mitral valve regurgitation. Aortic Valve Mild aortic valve calcification. No aortic valve stenosis. Trace aortic valve regurgitation. Tricuspid Valve Structurally normal tricuspid valve without significant stenosis or regurgitation. Pulmonary artery systolic pressure is normal. Pulmonic Valve Structurally normal pulmonic valve without significant stenosis. There is no pulmonic regurgitation. Pericardium Normal pericardium without effusion. Aorta Normal ascending aorta dimension. IVC The inferior vena cava appears normal. CONCLUSIONS Normal left ventricular size, systolic function and wall thickness, with no regional wall motion abnormalities. Left ventricular ejection fraction is estimated at 60 %. Grade I/IV diastolic dysfunction (abnormal relaxation filling pattern), normal to mildly elevated filling pressures. There is no pericardial effusion. No significant valve abnormalities. Right atrial pressure is around 5 mm of mercury. Haley Samaniego MD (Electronically Signed) Final Date: 01 September 2024 23:05 S
== END 2024-08-31 14:13 | disposition home or self-care (01) ==
LOC: RAD 14:13
PROVIDERS: PCP Family Medicine; Visit Provider Internal Medicine Cardiovascular Disease
DX: R06.09 Other forms of dyspnea (principal); R93.1 Abnormal findings on diagnostic imaging of heart and coronary circulation; I35.8 Other nonrheumatic aortic valve disorders
CPT/HCPCS: 93306

== ENCOUNTER 2024-09-04 09:38 | Emergency (ER) | payer MEDICARE, OTHER, SELFPAY ==
--- NOTE | 2024-09-04 09:44 | XRR_ITS ---
PROCEDURE INFORMATION: Exam: XR Chest Exam date and time: 09/04/2024 9:45 AM Age: 73 years old Clinical indication: Pain; Chest pressure; Additional info: Chest pain TECHNIQUE: Imaging protocol: Radiologic exam of the chest. Views: 1 view. COMPARISON: CT chest con [id number] 05/24/2023 10:09 AM FINDINGS: Lungs: There is a background of mild emphysema and pulmonary fibrosis. There are hazy and linear opacities present in the lower dimitry thoraces bilaterally and a few septal markings are seen in the left lower hemithorax, findings that may represent atelectasis although pulmonary edema can not be excluded. Stranding opacities are seen in the lung bases bilaterally the most probably represents atelectasis. Increased density in the retrocardiac region could represent a superimposed infiltrate and pneumonia as well. Pleural spaces: Unremarkable. No pleural effusion. No pneumothorax. Heart/Mediastinum: Unremarkable. No cardiomegaly. Bones/joints: Unremarkable. XR/XR chest 1V portable [id number] IMPRESSION: 1. There is a background of mild emphysema and pulmonary fibrosis. 2. There may be combined mild pulmonary edema and left basilar infiltrates versus atelectasis.
--- NOTE | 2024-09-04 09:44 | ECG_ITS ---
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 Measurements Intervals [place] Rate: 96 P: 31 W[place]: 152 QRS: -28 QRSD: 96 T: 40 QT: 352 QTc: 447 Interpretive Statements SINUS RHYTHM BORDERLINE LEFT AXIS DEVIATION [QRS AXIS < -20] INCOMPLETE RIGHT BUNDLE BRANCH BLOCK [90+ ms QRS DURATION, TERMINAL R IN V1/V2, 40+ ms S IN I/aVL/V4/V5/V6] NONSPECIFIC ST & T-WAVE ABNORMALITY Compared to ECG 08/10/2023 15:49:38 T-wave abnormality now present Electronically Signed On 09-06-2024 14:06:19 CDT by Jay Choi M.D. [id number]
[2024-09-04 09:47] VITALS: BP 117/84; PULSE 101; RESP 18; TEMP 36.8; O2SAT 97; BMI 27.6
--- OUTSIDE RECORDS SUMMARY | 2024-09-04 09:47 | XMS_ITS | Data Portability ---
Author Organization ALEXANDRA Crawford [facility], [facility], [facility] Address [address] [facility] [address] [place] [address] Care Team Providers Care Care Nurse Rn Name Role Phone МАРИНА PENA Primary Care Provider Assessment Encounter Date Assessment Date Assessment LastModified by Organization Details LastModified Time 11/17/2023 11/17/2023 he has just had flu/covid/pneu monia vaccination this last month. [email or web address] Not available 11/17/2023 08:34:02 Plan of Treatment Reminders Order Date Submit Date Provider Last Modified By Organization Details Last Modified Time Details Appointments OFFICE VISIT JEAN 2024 07:30A M Марина Pena MD Not available Not available Not available Lab hemoglobi n A1C/hemog lobin total, QN, blood 2024 025 Pending sale to [facility], [address], [place], [address], 05/10/2024 09:22:38 CMP, serum or plasma 2024 025 Pending sale to [facility], [address], [place], [address], 05/10/2024 09:50:41 lipid panel, blood 2024 025 Pending sale to [facility], [address], [address], [place], [address], 05/10/2024 09:50:36 PSA, serum or plasma 2024 025 [place] [email or web address] [facility], [address] [place] [address], [address] [place], [address], 05/11/2024 05:47:03 HbA1c (hemoglob in A1c), blood 2023 024 [facility] ([facility]), [address] [place], [address], 11/10/2023 09:17:01 CBC 2023 024 [facility], [address], [address], 11/10/2023 08:40:49 periphera l blood smear 2023 024 [place] [address] [facility], [address] [place] [address], [facility] [address] [place], [address], 11/17/2023 08:30:09 CMP, serum or plasma 2023 024 [facility], [address], [address], 11/10/2023 09:28:56 Referral dermatolo gist referral [address] [facility], [address] [place], [address], 12/28/2023 13:25:46 Procedures None recorded. Surgeries None recorded. Imaging None recorded. Medication Orders None recorded. Patient TargetsNo targets recorded. Patient InstructionsNo instructions recorded. Reason for Referral Manager Card Referral for Bryan lincoln in skin lesion Referring Physician: Марина Pena, Family Medicine, Encounter Date: 12/15/2023 Results Created Date Observation Date Name Description Value Unit Range Abnormal Flag Note LastModifiedBy Organization Detail LastModifiedTime 11/10/1911/10/2023 CBC WBC 6.1 x10 4.5-10 .5 Not Available [facility] [address] [facility] 1, [place], [address], 11/10/2023 08:40:49 11/10/1911/10/2023 CBC RBC 5.61 x10 4.30-5 .90 Not Available [facility] [address] [facility] 1, [place], [address], 11/10/2023 08:40:49 11/10/1911/10/2023 CBC HGB 17.0 g/dL 13.5-1 8.0 Not Available [facility] [address] [facility] 1, [place], [address], 11/10/2023 08:40:49 11/10/1911/10/2023 CBC HCT 51.3 % 35.0-6 0.0 Not Available [facility] [address] [facility] 1, [place], [address], 11/10/2023 08:40:49 11/10/1911/10/2023 CBC MCV 91.4 fL 80.0-9 9.9 Not Available [facility] [address] [facility] 1, [place], [address], 11/10/2023 08:40:49 11/10/1911/10/2023 CBC MCH 30.4 pg 27.0-3 2.0 Not Available [facility] [address] [facility] 1, [place], [address], 11/10/2023 08:40:49 11/10/1911/10/2023 CBC MCHC 33.2 g/dL 32.0-3 6.0 Not Available [facility] [address] [facility] [address] [facility] 1, [place], [address], 11/10/2023 08:40:49 11/10/19 24 11/10/2023 CBC RDW 14.3 % 11.5-1 4.5 Not Available [facility] [address] [facility] [address] [facility] 1, [place], [address], 11/10/2023 08:40:49 11/10/19 24 11/10/2023 CBC plt 168.5 x10 150.0- 451.0 Not Available [facility] [address] [facility] 1, [place], [address], 11/10/2023 08:40:49 11/10/19 24 11/10/2023 CBC lymphocytes % 23.4 % 20.0-5 0.0 Not Available [facility] [address] [facility] 1, [place], [address], 11/10/2023 08:40:49 11/10/19 24 11/10/2023 CBC granulcytes % 67.9 % 30.0-7 0.0 Not Available [facility] [address] [facility] 1, [place], [address], 11/10/2023 08:40:49 11/10/19 24 11/10/2023 CBC monocytes % 6.8 % 2.0-16 .0 Not Available [facility] [address] [facility] 1, [place], [address], 11/10/2023 08:40:49 11/10/19 24 11/10/2023 CBC granulcytes# 4.2 x10 Not Cleo ilable [facility] [address] [facility] 1, [place], [address], 11/10/2023 08:40:49 11/10/19 24 11/10/2023 CBC lymphocytes # 1.4 x10 Not Available [facility] [address] [address], [place], [address], 11/10/2023 08:40:49 11/10/19 24 11/10/2023 CBC monocytes # 0.4 x10 Not Avai lable [facility] [address] [facility] [address] 1, [place], [address], 11/10/2023 08:40:49 11/10/19 24 11/10/2023 CMP (MALE ) glucose 121.0 mg/dL 60.0-9 9.0 high Not Available [facility] [address] [facility], [place], [address], 11/10/2023 09:28:56 11/10/19 24 11/10/2023 CMP (MALE ) BUN (blood urea nitrogen) 14.0 mg/dL 10.0-2 6.0 Not Available [facility] [address] [address], [place], [address], 11/10/2023 09:28:56 11/10/19 24 11/10/2023 CMP (MALE ) creatinine (serum) 1.1 mg/dL 0.4-1. 5 Not Available [facility] [address] [facility] [address] [address], [place], [address], 11/10/2023 09:28:56 11/10/19 24 11/10/2023 CMP (MALE ) BUN/creatini ne ratio 12.50 ratio Not Available [facility] [address] [facility] [address] [address], [place], [address], 11/10/2023 09:28:56 11/10/19 24 11/10/2023 CMP (MALE ) eGFR calculated 68.3 Not Available [facility] [address] [facility], [place], [address], 11/10/2023 09:28:56 11/10/19 24 11/10/2023 CMP (MALE ) total protein 7.0 g/dL 6.0-8. 5 Not Available [facility] [address] [facility] [address] 1, [place], [address], 11/10/2023 09:28:56 11/10/19 24 11/10/2023 CMP (MALE ) total bilirubin 0.6 mg/dL 0.2-1. 3 Not Available [facility] [address] [place] [facility], [place], [address], 11/10/2023 09:28:56 11/10/19 24 11/10/2023 CMP (MALE ) albumin 3.9 g/dL 3.5-5. 5 Not Available [facility] [address] [place] [facility], [place], [address], 11/10/2023 09:28:56 11/10/19 24 11/10/2023 CMP (MALE ) globulin 3.1 calc Not Available [facility] [address] [facility] 1, [place], [address], 11/10/2023 09:28:56 11/10/19 24 11/10/2023 CMP (MALE ) AST (SGOT) 21.0 U/L 0.0-46 .0 Not Available [facility] [address] [place] [facility], [place], [address], 11/10/2023 09:28:56 11/10/19 24 11/10/2023 CMP (MALE ) altv (SGPT) 20.0 U/L 13.0-6 9.0 normal Not Available [facility] [address] [place] [facility], [place], [address], 11/10/2023 09:28:56 11/10/19 24 11/10/2023 CMP (MALE ) A/G ratio 1.3 ratio Not Available [facility] [address] [place] [facility], [place], [address], 11/10/2023 09:28:56 11/10/19 24 11/10/2023 CMP (MALE ) ALP phos 75.0 U/L 30.0-1 40.0 normal Not Available [facility] [address] [facility] 1, [place], [address], 11/10/2023 09:28:56 11/10/19 24 11/10/2023 CMP (MALE ) calcium 9.9 mg/dL 8.4-10 .5 Not Available [facility] [address] [facility] 1, [place], [address], 11/10/2023 09:28:56 11/10/1911/10/2023 CMP (MALE ) sodium 142.0 mmol/ L 136.0- 145.0 Not Available [facility] [address] [facility] 1, [place], [address], 11/10/2023 09:28:56 11/10/19 24 11/10/2023 CMP (MALE ) potassium 4.2 mmol/ L 3.5-5. 1 Not Available [facility] [address] [facility] 1, [place], [address], 11/10/2023 09:28:56 11/10/19 24 11/10/2023 CMP (MALE ) chloride 114.0 mmol/ L 98.0-1 10.0 abnormal Not Available [facility] [address] [facility] 1, [place], [address], 11/10/2023 09:28:56 11/10/1911/10/2023 CMP (MALE ) C02 25.0 mmol/ L 22.0-3 1.0 Not Available [facility] [address] [facility] 1, [place], [address], 11/10/2023 09:28:56 11/10/19 24 11/10/2023 CMP (MALE ) anion gap 3.0 calc Not Available [facility] [address] [facility] 1, [place], [address], 11/10/2023 09:28:56 11/10/19 24 11/10/2023 CMP (MALE ) osmolality 294.7 calc Not Available [facility] [address] [facility] 1, [place], [address], 11/10/2023 09:28:56 11/10/19 24 11/12/2023 PATHO LOGIS T REVIE W OF PERIP HERAL SMEAR pathologist review of peripheral smear CANDEA Megan DIFFE OLITI AL: THE AUTOM ATED DIFFE OLITI AL WAS REVIE WED AND WAS ACCEP FERMIN. THIS IS A PERIP HERAL BLOOD WITH UNREM ARKAB LE ERYTH ROCYT ES, LEUKO CYTES AND PLATE LETS. CLINI COPAT HOLOG IC CORRE LATIO N IS REQUI RED. (TLV/ DLP) THIS PERIP HERAL BLOOD SMEAR WAS REVIE WED BY: YOSHI JONES M.D. [facility] [id number] [place] [address] CLIA ID NO. [id number] Not Available [facility] [address] [place], [address], 11/12/2023 19:11:25 11/10/19 24 11/10/2023 HbA1c (hemo globi n A1c), blood HbA1c 6.0 Not Available [facility] ([facility]) [address] [place], [address], 11/10/2023 08:07:20 05/11/19 25 05/10/2024 HBA1C hemaglobin A1C 5.8 4.2-6. 5 Not Available [facility] [address] [facility] 1, [place], [address], 05/10/2024 09:22:38 05/11/19 25 05/10/2024 LIPID PROFI LE (MALE ) cholesterol 62.0 mg/dL 0.0-20 0.0 Not Available [facility] [address] [facility] 1, [place], [address], 05/10/2024 09:50:36 05/11/19 25 05/10/2024 LIPID PROFI LE (MALE ) trig 133.0 mg/dL 0.0-15 0.0 Not Available [facility] [address] [facility] 1, [place], [address], 05/10/2024 09:50:36 05/11/19 25 05/10/2024 LIPID PROFI LE (MALE ) HDL - direct 43.0 mg/dL >40.0 Not Available [facility] [address] [facility] 1, [place], [address], 05/10/2024 09:50:36 05/11/19 25 05/10/2024 LIPID PROFI LE (MALE ) VLDL - direct 26.6 mg/dL Not Available [facility] [address] [address], [place], [address], 05/10/2024 09:50:36 05/11/19 25 05/10/2024 LIPID PROFI LE (MALE ) LDL - direct -7.6 mg/dL 0.0-13 0.0 low Not Available [facility] [address] [address], [place], [address], 05/10/2024 09:50:36 05/11/19 25 05/10/2024 CMP (MALE ) glucose 118.0 mg/dL 60.0-9 9.0 high Not Available [facility] [address] [facility] 1, [place], [address], 05/10/2024 09:50:41 05/11/19 25 05/10/2024 CMP (MALE ) BUN (blood urea nitrogen) 14.0 mg/dL 10.0-2 6.0 Not Available [facility] [address] [facility] [address], [place], [address], 05/10/2024 09:50:41 05/11/19 25 05/10/2024 CMP (MALE ) creatinine (serum) 1.1 mg/dL 0.4-1. 5 Not Available [facility] [address] [facility], [place], [address], 05/10/2024 09:50:41 05/11/19 25 05/10/2024 CMP (MALE ) BUN/creatini ne ratio 12.73 ratio Not Available [facility] [address] [facility], [place], [address], 05/10/2024 09:50:41 05/11/19 25 05/10/2024 CMP (MALE ) eGFR calculated 69.7 Not Available [facility] [address] [facility], [place], [address], 05/10/2024 09:50:41 05/11/19 25 05/10/2024 CMP (MALE ) total protein 7.2 g/dL 6.0-8. 5 Not Available [facility] [address] [facility], [place], [address], 05/10/2024 09:50:41 05/11/19 25 05/10/2024 CMP (MALE ) total bilirubin 0.8 mg/dL 0.2-1. 3 Not Available [facility] [address] [facility], [place], [address], 05/10/2024 09:50:41 05/11/19 25 05/10/2024 CMP (MALE ) albumin 4.3 g/dL 3.5-5. 5 Not Available [facility] [address] [facility], [place], [address], 05/10/2024 09:50:41 05/11/19 25 05/10/2024 CMP (MALE ) globulin 2.9 calc Not Available [facility] [address] [facility] 1, [place], [address], 05/10/2024 09:50:41 05/11/19 25 05/10/2024 CMP (MALE ) AST (SGOT) 22.0 U/L 0.0-46 .0 Not Available [facility] [address] [facility] 1, [place], [address], 05/10/2024 09:50:41 05/11/19 25 05/10/2024 CMP (MALE ) altv (SGPT) 24.0 U/L 13.0-6 9.0 normal Not Available [facility] [address] [address], [place], [address], 05/10/2024 09:50:41 05/11/19 25 05/10/2024 CMP (MALE ) A/G ratio 1.5 ratio Not Available [facility] [address] [address], [place], [address], 05/10/2024 09:50:41 05/11/19 25 05/10/2024 CMP (MALE ) ALP phos 73.0 U/L 30.0-1 40.0 normal Not Available [facility] [address] [address], [place], [address], 05/10/2024 09:50:41 05/11/19 25 05/10/2024 CMP (MALE ) calcium 9.6 mg/dL 8.4-10 .5 Not Available [facility] [address] [address], [place], [address], 05/10/2024 09:50:41 05/11/19 25 05/10/2024 CMP (MALE ) sodium 139.0 mmol/ L 136.0- 145.0 Not Available [facility] [address] [facility] 1, [place], [address], 05/10/2024 09:50:41 05/11/19 25 05/10/2024 CMP (MALE ) potassium 4.2 mmol/ L 3.5-5. 1 Not Available [facility] [address] [facility] 1, [place], [address], 05/10/2024 09:50:41 05/11/19 25 05/10/2024 CMP (MALE ) chloride 106.0 mmol/ L 98.0-1 10.0 normal Not Available [facility] [address] [facility] 1, [place], [address], 05/10/2024 09:50:41 05/11/19 25 05/10/2024 CMP (MALE ) C02 25.0 mmol/ L 22.0-3 1.0 Not Available [facility] [address] [facility] 1, [place], [address], 05/10/2024 09:50:41 05/11/1905/10/2024 CMP (MALE ) anion gap 8.0 calc Not Available [facility] [address] [facility] 1, [place], [address], 05/10/2024 09:50:41 05/11/1905/10/2024 CMP (MALE ) osmolality 288.6 calc Not Available [facility] [address] [facility] 1, [place], [address], 05/10/2024 09:50:41 05/11/1905/11/2024 PSA, TOTAL PSA, total 0.56 NG/mL < or = 4.00 normal The total PSA value from this assay omayra m is stand ardiz ed again st the WHO stand agustin. The test resul t will be appro ximat manish 20% lower when herman red to the equim olar- stand ardiz ed total PSA (Blair man Coult er). Herman rison of seria l PSA resul ts shoul d be inter prete d with this fact in mind. This test was perfo rmed using the Sieme ns chemi lumin escen t metho d. Value s obtai nallely from diffe rent assay metho ds canno t be used inter carrera eably . PSA level s, regar dless of value , shoul d not be inter prete d as absol tolowa dee-ni' evide nce of the prese nce or absen ce of disea se. Not Available [email or web address] [facility] [address] [place], [address], 05/11/2024 05:47:03 Result Notes None recorded. Problems Name Problem SNOMED Code Status Onset Date Resolution Date Notes Provider Name and Address Organization Details Recorded Time Cannabis dependence, continuous 347999226 Active 2022 KWAN spence [facility] 5 08:16:47 Coronary atheroscleros is 613845325 Active 2022 stents X 3 to RCA-Pro mus KWAN spence [facility] 3 17:00:02 Myocardial infarction 25099460 Active 2022 hx of KWAN spence [facility] 5 08:16:57 Chronic obstructive pulmonary disease 46319689 Active [address] chest 10/08/22 : [facility] s2 KWAN spence [facility] 4 12:07:06 Gastroesophag eal reflux disease 222243437 Active 2022 KWAN spence [facility] 3 17:00:15 Benign prostatic hyperplasia 931839445 Active 2022 KWAN spence [facility] 3 17:00:23 Hyperglycemia 78757390 Active 2022 KWAN spence [facility] [place] 3 15:24:37 Essential hypertension 97295025 Active 2022 KWAN spence [facility] [place] 3 15:26:30 Multiple nodules of lung 916766998 Active 2023 KWAN spence [facility] [place] 5 08:16:47 Adrenal mass 835192583 Active 2023 KWAN spence [facility] [place] 5 08:16:47 Problem Notes None recorded. Procedures Surgical History Date Name Laterality Status Provider Name and Address Organization Details Recorded Time 5 mohs surgery completed [facility] 14:16:58 3 laminectomy completed [facility] [place] 01/20/2023 12:15:01 0 colonoscopy completed [facility]ICK [facility]/18/2022 17:03:39 Imaging Results None recorded. Procedure Notes None recorded. Medical Equipment None Reported. Allergies No known drug allergies Medications Name Sig Start Date Stop Date Status Note LastModified by Organization Details LastModified Time celecoxib 200 mg capsule TAKE 1 TABLET BY MOUTH TWICE DAILY 01/20 completed Not Available Not Available Not Available ketoconazol e 2 % shampoo WASH onto THE itchy, flaky areas of SCALP EVERY DAY when bathing UNTIL CLEAR THEN twice weekly FOR maintenan ce. let sit FOR 3-5 minutes THEN RINSE. reuse FOR new flares active Not Available Not Available No t Available hydrocodone 5 mg-acetamin ophen 325 mg tablet TAKE 1 TABLET BY MOUTH EVERY 6 HOURS NEEDED 01/20 completed Not Available Not Available Not Available prednisone 20 mg tablet TAKE 3 TABLETS BY MOUTH EVERY DAY FOR THREE DAYS, THEN TWO daily FOR TWO DAYS, THEN ONE daily FOR TWO DAYS 01/20 completed Not Available Not Available Not Available carvedilol 3.125 mg tablet TAKE 1 TABLET BY MOUTH EVERY DAY active Not Available Not Available No t Available ciclopirox 8 % topical solution APPLY TO THE AFFECTED AREA(S) ONCE daily perferabl e AT BEDTIME or EIGHT hours before WASHING active Not Available Not Available No t Available oxycodone-a cetaminophe n 5 mg-325 mg tablet Take 1 tablet every 4-6 hours by oral route. 01/20 completed Not Available Not Available Not Available methocarbam ol 750 mg tablet TAKE 1 TABLET BY MOUTH EVERY 8 HOURS NEEDED 01/20 completed Not Available Not Available Not Available oxycodone-a cetaminophe n 10 mg-325 mg tablet TAKE ONE TABLET BY MOUTH EVERY 6 HOURS NEEDED FOR moderate TO severe pain 01/20 completed Not Available Not Available Not Available tamsulosin 0.4 mg capsule take 1 capsule BY MOUTH TWICE DAILY 2024 active Not Available Not Available Not Avai lable dexamethaso ne 1 mg tablet TAKE 1 TABLET BY MOUTH at 11pm THE night before blood test. present TO your doctors office TO have blood drawn THE following morning at 8am 11/01 completed Not Available Not Available Not Available pantoprazol e 40 mg tablet,zana yed release TAKE 1 TABLET BY MOUTH EVERY DAY active Not Available Not Available No t Available gabapentin 300 mg capsule Take 1 capsule 3 times a day by oral route. 05/09 completed Not Available Not Available Not Available aspirin 81 mg tablet Take 1 tablet every day by oral route. active Not Available Not Available No t Available mupirocin 2 % topical ointment apply a small amount TO affected area THREE TIMES DAILY 11/16 completed Not Available Not Available Not Available methylpredn isolone 4 mg tablets in a dose pack Take by oral route. 01/20 completed Not Available Not Available Not Available clobetasol 0.05 % scalp solution APPLY ENOUGH TO COVER TOPICALLY TO AFFECTED AREAS ONCE A DAY NEEDED. LEAVE ON FOR EIGHT HOURS BEFORE RINSING active Not Available Not Available No t Available finasteride 5 mg tablet TAKE 1 TABLET BY MOUTH EVERY DAY active Not Available Not Available No t Available rosuvastati n 20 mg tablet TAKE 1 TABLET BY MOUTH EVERY DAY active Not Available Not Available No t Available oxycodone 10 mg tablet TAKE 1 OR 2 TABLETS BY MOUTH EVERY 4 HOURS NEEDED FOR PAIN FOR SEVEN DAYS 05/09 completed Not Available Not Available Not Available Anoro Ellipta 62.5 mcg-25 mcg/actuati on powder for inhalation Inhale 1 puff every day by inhalatio n route. 01/05 completed Not Available Not Available Not Available Praluent Pen 75 mg/mL subcutaneou s pen injector inject THE contents of one pen SUBCUTANE OUSLY every TWO weeks 02/09 completed Not Available Not Available Not Available Repatha SureClick 140 mg/mL subcutaneou s pen injector inject 1ml SUBCUTANE OUSLY every TWO weeks 2024 active Not Available Not Available Not Avai lable Repatha Pushtronex 420 mg/3.5 mL subcutaneou s wearable injector inject 3.5ml SUBCUTANE OUSLY every month 08/08 completed Not Available Not Available Not Available Trelegy Ellipta 100 mcg-62.5 mcg-25 mcg powder for inhalation INHALE 1 PUFF BY MOUTH EVERY DAY 11/16 completed Not Available Not Available Not Available Trelegy Ellipta 200 mcg-62.5 mcg-25 mcg powder for inhalation INHALE 1 PUFF EVERY DAY active Not Available Not Available No t Available Vitals Date Recorded Body height Body mass index (BMI) Body weight Body temperature Heart rate Oxygen saturation Oxygen saturation in Arterial blood by Pulse oximetry Systolic And Diastolic Provider Name and Address Organization Details Last Updated DateTime 5 182.88 cm 29.2 kg/m2 30988.3 6 g 97.2 [degF] 84 /min 97 % 97 % 130/72 mm[Hg] KWAN PATRICK [facility] 5 08:22:33 Date Recorded Body height Body mass index (BMI) Body weight Body temperature Heart rate Oxygen saturation Oxygen saturation in Arterial blood by Pulse oximetry Systolic And Diastolic Provider Name and Address Organization Details Last Updated DateTime 4 182.88 cm 28.5 kg/m2 22162.4 g 97.3 [degF] 71 /min 96 % 96 % 126/70 mm[Hg] [facility] 4 08:17:22 Date Recorded Body height Body mass index (BMI) Body weight Body temperature Heart rate Oxygen saturation Oxygen saturation in Arterial blood by Pulse oximetry Systolic And Diastolic Provider Name and Address Organization Details Last Updated DateTime 4 182.88 cm 29 kg/m2 24429.7 7 g 97.4 [degF] 93 /min 94 % 94 % 132/80 mm[Hg] [facility] 4 12:06:36 Social History Question Answer Notes LastModified by [employer] Details LastModified Time Tobacco Smoking Status Former [facility] 11/18/2022 17:03:22 Which Illicit Or Recreational Drugs Have You Used? Marijuana [email or web address] Information not available 11/18/2022 When Did You Quit Smoking? 11-15yearssinc elastcigarette 2009 [email or web address] Information not available 11/18/2022 What Is Your Current Pack Years? 30ormorepackye ars [email or web address] Information not available 11/18/2022 Sex: Unknown Functional Status Question Answer Note LastModified by [employer] Details LastModified Time Do you use any illicit or recreational drugs? Yes [email or web address] Information not available 11/18/2022 Do you or have you ever used any other forms of tobacco or nicotine? No [email or web address] Information not available 11/18/2022 What is your level of alcohol consumption? Occasional [email or web address] Information not available 11/18/2022 Mental Status None recorded. Family History Relationship Description Onset Age of this Age Resolved Age Notes LastModified by Organization Details LastModified Time Father Hypertensive disorder [email or web address] Not available 11/18 17:00:50 Father Malignant tumor of colon Not available 11/18 17:01:05 Father Tuberculosis Not cleo ilable 11/18/2022 17:01:14 Mother Hypertensive disorder [email or web address] Not available 11/18 17:00:50 Medical History Condition Response Anxiety Disorder Y Heart Problems Y Other High Cholesterol Y Cancer Y COPD Y GI Problems Y Chicken Pox Y Immunizations Vaccine Type Date Status Note Provider Nam e and Address Organization Details Recorded Time pneumococcal polysaccharide PPV23 5 completed KWAN spence, [facility] 01/20/2023 12:11:46 zoster live 5 completed KWAN PATRCIK null, [facility] 01/20/2023 12:11:47 Influenza, high-dose, trivalent, PF 7 completed KWAN PATRICK null, [facility] 01/20/2023 12:11:47 Influenza, split virus, quadrivalent, PF 5 completed KWAN PATRICK null, [facility] 01/20/2023 12:11:47 RSV, bivalent, protein subunit RSVpreF, diluent reconstituted, 0.5 mL, PF 3 completed KWAN spence, [facility] 05/10/2023 08:03:22 COVID-19, mRNA, LNP-S, PF, 50 mcg/0.5 mL 3 completed KWAN spence, [facility] 05/10/2023 08:03:22 Pneumococcal conjugate PCV20, polysaccharide HDQ238 conjugate, adjuvant, PF 4 completed Not Available [facility] 05/17/2024 08:03:38 Influenza, high-dose, trivalent, PF 4 completed Not Available [facility] 05/17/2024 08:03:38 COVID-19, mRNA, LNP-S, PF, 50 mcg/0.5 mL 4 completed Not Available [facility] 05/17/2024 08:03:38 RSV, bivalent, protein subunit RSVpreF, diluent reconstituted, 0.5 mL, PF 4 completed Not Available [facility] 05/17/2024 08:03:38 Influenza, adjuvanted, quadrivalent, PF 3 completed KWAN PATRICK [facility] 11/13/2022 11:25:37 Past Encounters Encounter ID Performer Location Encounter Start Date Encounter Closed Date Diagnosis/Indication Diagnosis SNOMED-CT Code Diagnosis ICD10 Code Diagnosis Note [id number] Марина Pena MD [facility] ([facility]) [address] [place] [address] [id number] 5 11/13/2022 09:34:00 11/13/2022 11:22:24 Cannabis dependence, continuous 343807334 F12.20 Harmful pa ttern of use of alcohol 82768504 F10.10 Exposure t o tuberculosis 3769068290 101 Z20.1 father had TB. Benign pro static hyperplasia 038110131 N40.1 well controlled on current meds. 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 Essential hypertension 28748020 I10 [id number] Марина Pena MD [facility] ([facility]) [address] [place] [address] [id number] 5 05/10/2023 08:02:23 05/10/2023 09:47:59 Hyperglycemia 85972781 R73.9 Coronary atherosclerosis 389462827 I25.10 Chronic ob structive pulmonary disease 65653277 J44.9 Benign pro static hyperplasia 021220125 N40.1 well controlled on current meds. Essential hypertension 24964835 I10 Adenoma of right adrenal gland 8059588173 4992383 D35.01 Former desmond hendricks tobacco smoker 8477498811 74801 Z87.891 Multiple n odules of lung 645236540 R91.8 Onychomyco sis of toenails 111867426 B35.1 Cannabis dependence 8500 5007 F12.20 Cannabis d ependence, continuous 462495463 F12.20 Depressive disorder 3548 9007 F32.A Isolated thrombocytopenia 581152558 D69.6 [id number] Марина Pena MD [facility] ([facility]) [address] [place] [address] 5 05/18/2023 08:26:47 05/18/2023 10:11:21 Multiple nodules of lung 457067427 R91.8 ct chest is scheduled for 05/23 Adrenal mass 752786550 R 19.09 reinforced risks of not getting recheck ct in november as scheduled and benefits of doing so. [id number] Марина Pena MD [facility] ([facility]) [address] [place] [address] 5 11/10/2023 08:01:04 11/11/2023 12:36:08 Essential hypertension 08557618 I10 Hyperglycemia 41294779 R 73.9 Thrombocyt openic disorder 260256389 D69.6 [id number] Марина Pena MD [facility] ([facility]) [address] [place] [address] 5 11/17/2023 08:06:11 11/17/2023 10:32:00 Chronic obstructive pulmonary disease 71310121 J44.9 he has cut back on cannabis and only has one cigarette per day. he was smoking all day long every day. he is not depressed he does a 1.5 hr walk every day without having to take a break Coronary atherosclerosis 106484737 I25.10 see above daily walking program Essential hypertension 26732216 I10 Hyperglycemia 39356113 R 73.9 Cannabis d ependence, continuous 383663446 F12.20 Multiple n odules of lung 675037390 R91.8 followed by pulmonolog y as well. ct chest is planned but was pushed back. it is the same day as the pft. Adrenal mass 393853659 R 19.09 reinforced risks of not getting recheck ct in november as scheduled and benefits of doing so. [id number] Марина Pena MD [facility] ([facility]) [address] [place] [address] [id number] 5 12/15/2023 11:53:00 12/18/2023 14:51:02 Change in skin lesion 239915121 L98.9 [id number] Марина Pena MD [facility] ([facility]) [address] [place] [address] [id number] 5 05/10/2024 08:03:01 05/11/2024 07:29:51 Benign prostatic hyperplasia 865402943 N40.1 well controlled on current meds. Essential hypertension 08509457 I10 Hyperglycemia 17871379 R 73.9 [id number] Марина Pena MD [facility] ([facility]) [address] [place] [address] [id number] 5 05/17/2024 08:03:07 05/18/2024 08:30:46 Cannabis dependence, continuous 738262666 F12.20 Chronic ob structive pulmonary disease 02617376 J44.9 he has cut back on cannabis and only has one cigarette per day. he was smoking all day long every day. he is not depressed Essential hypertension 52744579 I10 at goal Basal cell carcinoma of scalp 229081641 C44.41 s/p moh's surgery has healed very well. Coronary atherosclerosis 832314191 I25.10 see above daily walking programccc Multiple n odules of lung 853539074 R91.8 followed by pulmonolog y as well. ct chest is planned but was pushed back. it is the same day as the pft. Pulmonolog y recommends no further screening for his lung nodules. he will f/u in July. Health Concerns Section Related Observation LastModified by Organization Detai ls LastModified Time None Recorded Concern Status LastModified by Organization Details LastModified Time None Recorded Advance Directives Directive None Recorded Payers Insurance Date Sequence Insurance Name Policy Number Policy Vo Covered Member ID Vo Member ID Guarantor Name 11/17/2023 2 [employer] SUPPLEMENTAL - [place] (MEDICARE SUPPLEMENT) Rasheed Cantu [id number] Rasheed Cantu 05/10/2024 1 MEDICARE B-[place]: [place] Rasheed Cantu [id number] Rasheed Cantu 11/17/2023 2 [email or web address] INSURANCE [employer] - [employer]AN - SECONDARY TO MEDICARE Rasheed Catnu [id number] Rasheed Cantu 11/10/2023 1 [employer] (MEDICARE REPLACEMENT/ADV ANTAGE - PPO) Rasheed Cantu [id number] Rasheed Cantu 05/10/2024 [facility] - [facility] A - RHC-FQ (MEDICARE) Rasheed Cantu [id number] Rasheed Cantu
--- NOTE | 2024-09-04 10:00 | ED_ITS ---
HPI - SOB/Dyspnea 2 General: Chief Complaint: Shortness of Breath/Dyspnea Stated Complaint: SOB & CP Time Seen by Provider: 09/04/24 09:44 History of Present Illness: HPI Narrative: 73-year-old male presents to the emergen cy room with complaint of chest pain. Patient was driving he had not been doing anything exertional about 15 to 20 minutes prior to arrival he began having chest pain he presented to the emergency room he did not take any sublingual nitro or do any kind of other interventions. It resolved spontaneously after about 10 to 15 minutes. Patient states that its worst it was at a 10 of a 10 he said it is barely perceptible now he had no worsening shortness of breath no diaphoresis he does mildly nauseated he had just eaten when it happened. He also had an episode 3 days ago while he was sitting at home sudden onset of chest pain that lasted for about 20 minutes. He has a known history of coronary disease he has previously had intervention with stenting his last stents were in 2020. He is still taking his Plavix he is a former heavy smoker. He has not had any other episodes of chest discomfort with exertion in the last several months. Associated symptoms: Deny abdominal pain, chest pain or fever(s) Related Data Home Medications ?Medication ?Instructions ?Recorded ?Confirmed aspirin 81 mg tablet,delayed 81 mg PO DAILY 01/14/23 0 09/04/24 release carvedilol 3.125 mg tablet 3.125 mg PO 1XD 01/14/23 finasteride 5 mg tablet 5 mg PO DAILY 01/14/2309/04 ketoconazole 2 % shampoo See Rx Instructions .Route . COMPLEX 01/14/23 09/04/24 pantoprazole 40 mg tablet,delayed 40 mg PO 1XD 3 09/04/24 release rosuvastatin 20 mg tablet 20 mg PO 1XD 01/14/23 tamsulosin 0.4 mg capsule 0.4 mg PO DAILY 01/14/23 albuterol sulfate 90 mcg/actuation 2 puff inhalation Q ID PRN Wheezing 09/04/24 09/04/24 aerosol inhaler evolocumab 140 mg/mL subcutaneous 1 mg SUBCUT Q14D 09/04/24 pen injector (Repatha SureClick) umeclidinium 62.5 mcg-vilanterol 1 inh inhalation JEMAL Y 09/04/24 09/04/24 25 mcg/actuation powdr for inhalation (Anoro Ellipta) Previous Rx's ?Medication ?Instructions ?Recorded nitroglycerin 0.4 mg sublingual 0.4 mg sublingual Q5M PRN chest 09/04/24 tablet pain #20 tabs Allergies Allergy/AdvReac Type Severity Reaction Status Date / Time No Known Allergies Allergy Verified 01/24/24 15:27 Review of Systems 2 Const: Denies: fever(s) or chills Card: Denies: chest pain Resp: Denies: dyspnea GI: Denies: abdominal pain : Denies: dysuria, urinary frequency or urinary urgency Musc: Denies: neck pain or back pain Skin/Breast: Denies: rash PFSH ED 2 PFSH: Medical History Dyslipidemia Benign essential hypertension with target blood pressure below 140/90 Atherosclerosis of coronary artery of [place] heart without angina pectoris Lumbar stenosis with neurogenic claudication Surgical History S/P coronary artery stent placement Status post lumbar laminectomy Social History Smoking and tobacco/nicotine status: former use of tobacco/nicotine Substance/Drug Use: current Substance/Drug use frequency: daily Physical Exam 2 Const: GENERAL APPEARANCE: cooperative ORIENTATION/CONSCIOUSNESS: Yes awake, Yes oriented to person, Yes oriented to place and Yes oriented to time HENMT: COMMON NORMALS: normocephalic, atraumatic and hearing grossly normal bilaterally HEAD & SCALP: normocephalic and atraumatic Resp: COMMON NORMALS: normal respiratory effort, No retractions, No use of accessory muscles and clear to auscultation bilaterally AUSCULTATION: clear to auscultation bilaterally Cardio: COMMON NORMALS: regular rate, regular rhythm and No murmurs present (Cardio) RATE: regular rate RHYTHM: regular rhythm GI: COMMON NORMALS: Soft to palpation and No hepatosplenomegaly present A USCULTATION: Yes normoactive bowel sounds PALPATION: Yes Soft to palpation, No Tenderness to palpation present (GI), No Guarding due to palpation present (GI) and Yes No hepatosplenomegaly present Extremity: COMMON NORMALS: normal to inspection, capillary refill normal, no clubbing, cyanosis or edema, no calf tenderness and no pedal edema Neuro: SENSORIUM/ORIENTATION: Yes oriented to person, Yes oriented to place and Yes oriented to time Skin: COMMON NORMALS: no rashes or lesions noted GENERAL SKIN EXAM: no rashes or lesions noted Course 2 Vital Signs: Vital signs: Vital Signs Temperature 98.2 F 09/04/24 09:47 Pulse Rate 96 09/04/24 13:38 Respiratory Rate 16 09/04/24 11:19 Blood Pressure 115/84 09/04/24 13:38 Pulse Oximetry 95 09/04/24 13:38 Oxygen Delivery Me thod Room Air 09/04/24 11:19 MDM - SOB/Dyspnea Medical Decision Making No further chest pain EKG and troponins normal range patient prefer to go home. Will discharge him home give sublingual nitro to use as needed if he has recurrence of episodes we will set him up for an outpatient Lexiscan sestamibi stress test continue baby aspirin daily return if he has further episodes of chest pain. On exam and workup today there is no signs of acute coronary syndrome. Chest x-ray is no pneumonia or pneumothorax there is no widening of the mediastinum. His oxygen saturations are normal on room air and he is not tachycardic downplays any signs at this time by Wells criteria for PE. At this time patient is asymptomatic and wishes to be discharged home. States he had no further chest pain since arriving here. Medical Records I reviewed the patient's medical records. Lab Data I reviewed the patient's lab results. 09/04/24 10:14 09/04/24 10:14 Labs/Radiology: Radiology Impressions Chest X-Ray 09/04/24 09:44 IMPRESSION: 1. There is a background of mild emphysema and pulmonary fibrosis. 2. There may be combined mild pulmonary edema and left basilar infiltrates versus atelectasis. Laboratory Results WBC 6.29 10^3/uL (3.29-11.43) 09/04/24 10:14 RBC 5.38 10^6/uL (3.85-5.65) 09/04/24 10:14 Hgb 15.90 g/dL (11.27-16.99) 09/04/24 10:14 Hct 49.2 % (37-53) 09/04/24 10:14 MCV 91.4 fl (82-101) 09/04/24 10:14 MCH 29.6 pg (27-33) 09/04/24 10:14 MCHC 32.3 g/dL (30-55) 09/04/24 10:14 RDW 14.4 % (12.1-15.1) 09/04/24 10:14 Plt Count 167 10^3/cmm (157-399) 09/04/24 10:14 MPV 10.8 fL (7.4-10.4) H 09/04/24 10:14 Neut % (Auto) 68.7 % 09/04/24 10:14 Lymph % (Auto) 19.7 % 09/04/24 10:14 Traverse % (Auto) 7.0 % 09/04/24 10:14 Eos % (Auto) 3.3 % 09/04/24 10:14 Baso % (Auto) 0.8 % 09/04/24 10:14 Neut # (Auto) 4.32 10^3/uL (1.8-7.7) 09/04/24 10:14 Lymph # (Auto) 1.2 10^3/uL (0.8-4.8) 09/04/24 10:14 Traverse # (Auto) 0.4 10^3/uL (0.2-0.9) 09/04/24 10:14 Eos # (Auto) 0.2 10^3/uL (0.0-0.8) 09/04/24 10:14 Baso # (Auto) 0.1 10^3/uL (0.0-0.1) 09/04/24 10:14 Nucleated RBC % (auto) 0 % 09/04/24 10:14 Nucleated RBCs # 0.0 /100WBC 09/04/24 10:14 Sodium 139 mmol/L (136-145) 09/04/24 10:14 Potassium 4.3 mmol/L (3.5-5.1) 09/04/24 10:14 Chloride 105 mmol/L (98-107) 09/04/24 10:14 Carbon Dioxide 22 mmol/L (22-29) 09/04/24 10:14 Anion Gap 16.3 (5-19) 09/04/24 10:14 BUN 11 mg/dL (8-23) 09/04/24 10:14 Creatinine 1.1 mg/dL (0.7-1.2) 09/04/24 10:14 GFR Calculation Not Reportable 09/04/24 10:14 Glucose 124 mg/dL (65-115) H 09/04/24 10:14 Calculated Osmolality 289 mOsm/kg (285-295) 09/04/24 10:14 Calcium 9.6 mg/dL (8.5-10.5) 09/04/24 10:14 Total Bilirubin 0.5 mg/dL (0.15-1.2) 09/04/24 10:14 AST 18 U/L (0-40) 09/04/24 10:14 ALT 22 U/L (0-41) 09/04/24 10:14 Alkaline Phosphatase 80 U/L (40-130) 09/04/24 10:14 Troponin T Baseline 8 ng/L (0-15) 09/04/24 10:14 Troponin T 120 Minute 7.29 ng/L (0-15) 09/04/24 12:00 Delta Troponin T -0.71 ABS# (0-10) L 09/04/24 12:00 Total Protein 6.5 g/dL (6.6-8.7) L 09/04/24 10:14 Albumin 3.8 g/dL (3.5-5.2) 09/04/24 10:14 Globulin 2.7 g/dL (1.3-4.6) 09/04/24 10:14 All radiology interpretation(s) finalized by discharge EKG Data EKG 1: Interpretation: EKG 09/04/2024 9:41 AM sinus rhythm incomplete bundle branch block rate of 96 VT interval 152 QTc [address] elevation or depression noted no T wave inversion noted. Compared to EKG 08/10/2023 incomplete bundle branch block now present EKG 2: Interpretation: EKG 09/04/2024 1149 normal sinus rhythm pulse rate of 88 VT interval 149 QTc 466 right bundle branch block no longer present. Discharge Plan Discharge Patient Disposition: Home Clinical Impression: Chest pain, S/P coronary artery stent placement, Hx of coronary artery disease Condition: Stable Prescriptions: New nitroglycerin 0.4 mg tablet, sublingual 0.4 mg sublingual Q5M PRN (Reason: chest pain) Qty: 20 0RF Rx Instructions: do not exceed 3 doses per episode No Action aspirin 81 mg tablet,delayed release (DR/EC) 81 mg PO DAILY ketoconazole 2 % shampoo See Rx Instructions .ROUTE .COMPLEX Rx Instructions: see directions carvedilol 3.125 mg tablet 3.125 mg PO 1XD tamsulosin 0.4 mg capsule 0.4 mg PO DAILY pantoprazole 40 mg tablet,delayed release (DR/EC) 40 mg PO 1XD finasteride 5 mg tablet 5 mg PO DAILY rosuvastatin 20 mg tablet 20 mg PO 1XD albuterol sulfate 90 mcg/actuation HFA aerosol inhaler 2 puff INHALATION QID PRN (Reason: Wheezing) umeclidinium-vilanterol [Anoro Ellipta] 62.5-25 mcg/actuation blister with device 1 inh INHALATION DAILY Repatha SureClick 140 mg/mL pen injector 1 mg SUBCUT Q14D Discharge Orders: Discharge ED (Routine); Ordered 09/04/24 Ordered By: Guzman Jamison Referrals: Juan Carlos Calero MD [Primary Care Provider, Family Practice] Discharge Diet: Usual diet Discharge Activity: Resume usual activity Patient Instructions: Opioid Safety, Pain Management, Patient Portal & Gustavo Instructions Activity Restrictions/Additional Instructions: Thank you for choosing [facility] for your healthcare needs today. It is very important that you follow up as instructed or that you return to the Emergency Department should you have concerns or if your condition changes or worsens in any way. You were seen in the emergency room with complaints of chest discomfort. Your cardiac enzymes and EKG did not show any acute changes. Will discharge you home and set up an outpatient stress test. You are given sublingual nitro to use as needed if you have recurrent episodes of chest pain return to the emergency room. Print Language: Belarusian Coding Level of Care Code ED Polysomnography Technician for Maria R Woodward
[2024-09-04 10:28] LABS: Hematocrit 49.2 % (37-53); Hemoglobin 15.90 g/dL (11.27-16.99); Mean Corpuscular HGB Conc 32.3 g/dL (30-55); Mean Corpuscular Hemoglobin 29.6 pg (27-33); Mean Corpuscular Volume 91.4 fl (82-101); Nucleated Red Blood Cells % 0 %; Platelet Count 167 10^3/cmm (157-399); Red Blood Count 5.38 10^6/uL (3.85-5.65); White Blood Count 6.29 10^3/uL (3.29-11.43)
[2024-09-04 10:37] VITALS: BP 107/76; PULSE 99; RESP 16; O2SAT 93
[2024-09-04 10:41] LABS: Alanine Aminotransferase 22 U/L (0-41); Albumin Level 3.8 g/dL (3.5-5.2); Alkaline Phosphatase 80 U/L (40-130); Anion Gap 16.3 (5-19); Aspartate Amino Transferase 18 U/L (0-40); Blood Urea Nitrogen 11 mg/dL (8-23); Calcium 9.6 mg/dL (8.5-10.5); Carbon Dioxide 22 mmol/L (22-29); Chloride 105 mmol/L (98-107); Creatinine Clr Calc Pharmacy 74.7226; Globulin 2.7 g/dL (1.3-4.6); Glucose 124 mg/dL (65-115); Osmolality Calculated 289 mOsm/kg (285-295); Potassium 4.3 mmol/L (3.5-5.1); Sodium 139 mmol/L (136-145); Total Protein 6.5 g/dL (6.6-8.7); Troponin(5th) Baseline 8 ng/L (0-15)
[2024-09-04 11:19] VITALS: BP 108/73; PULSE 92; RESP 16; O2SAT 93
--- NOTE | 2024-09-04 11:49 | ECG_ITS ---
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
[2024-09-04 12:25] LABS: Troponin 5 2HR 7.29 ng/L (0-15)
[2024-09-04 12:26] LABS: Troponin 5 2HR Delta -0.71 ABS# (0-10)
[2024-09-04 13:36] VITALS: BP 115/84; PULSE 96; O2SAT 95
[2024-09-04 13:38] VITALS: BP 115/84; PULSE 96; O2SAT 95
--- NOTE | 2024-09-05 14:41 | PC.SOCIAL ---
Herman rivera orders faxed to centralized scheduling.
== END 2024-09-04 13:45 | disposition home or self-care (01) ==
PROVIDERS: Emergency Provider Family Medicine; PCP Family Medicine
DX: R07.9 Chest pain, unspecified (principal); I25.10 Atherosclerotic heart disease of native coronary artery without angina pectoris; Z95.5 Presence of coronary angioplasty implant and graft; E78.5 Hyperlipidemia, unspecified; I10 Essential (primary) hypertension
CPT/HCPCS: 36415; 71045; 80053; 84484; 85025; 93005; 99285; J9999

== ENCOUNTER 2024-09-13 07:45 | Outpatient (CLI) | payer MEDICARE, OTHER, SELFPAY ==
--- NOTE | 2024-09-13 | ECG_ITS ---
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 Interpretive Statements Lung unchanged pre/post procedure; Intraprocedure shortess of breath; Symptoms resoled by discharge PROCEDURE: At the baseline, the EKG revealed normal sinus rhythm with a normal ST Ts. Poor R wave progression.. The baseline heart was 77 bpm with a blood pressue of 135/91 mm of Hg Lexiscan was infused over a period of 20 seconds. A total of 0.4 milligrams of Lexiscan was infused. The stress phase was continued for a total of 5 minutes. Heart rate at the end of the stress phase was 83 bpm with a blood pressure 127/82 mm of Hg. The EKG at the peak infusion revealed no significant changes. Occasional PVCs were noted during the recovery phase Sestamibi was injected 20 seconds after the Lexiscan infusion. Heart rate at the end of the recovery phase was 88 bpm with a blood pressure of 115/80 mm of Hg. CONCLUSION: 1. No significant EKG changes with the LexiScan infusion 2. No LexiScan induced chest pain .Lexiscan induced PVCs were noted 3. Normal blood pressure and heart rate response 4. Sestamibi/sestamibi perfusion scan pending; see separate report. Electronically Signed On 09-19-2024 10:24:19 CDT by Guerda Martínez M.D. [email or web address]
[2024-09-13 08:04] VITALS: BMI 28.0
--- NOTE | 2024-09-13 08:11 | NMCV_ITS ---
NM abhay perf SPECT r/s* 01301 Rasheed Cantu Age: 73 Gender: M : 1950 Exam Date: 09/13/2024 08:58 Ordering Phys: Guzman Jamison DO Technologist: MELLISSA Rubio Exam Location: [facility] Indications: cp STRESS TEST [facility] IMAGE PROTOCOL Rest/Stress 1 Lexiscan Day Radiopharmaceutical Dose (mCi) Administration Site Administered by Rest: Tc-99m 10.7 IV MELLISSA Araujo Sestamibi Stress:Tc-99m 32.5 IV MELLISSA Rubio Sestamisuhail Rest: 13-Sep-2024 60 Discovery 630 Stress: 13-Sep-2024 30 Discovery 630 Images obtained in supine and prone position. 0.4mg Lexiscan. SPECT RESULTS Technical Quality: Good Raw Data Analysis: Normal Image Corrections: Patient motion artifact - motion correction applied Summed Stress Score: 3 Summed Rest Score: 2 Summed Difference Score: 1 PERFUSION FINDINGS Small to moderate area of minimally decreased tracer uptake involving the mid and apical inferior and mid inferolateral segments. Subtle area ofreversibility is noted in the mid inferolateral region. FUNCTIONAL RESULTS (calculated via Gated SPECT) Stress Image LV EF (%): 57 Stress EDV (mL):96 TID: 0.84 Stress ESV (mL):41 FUNCTIONAL FINDINGS: Segmental wall motion analysis revealing no gross wall motion abnormalities IMPRESSIONS 1. Myocardial perfusion imaging revealing small to moderate area of minimal decrease tracer uptake involving the inferior and inferolateral regions with a subtle area of reversibility suggesting myocardial scarring with the very small area of possible alex-infarct ischemia in the RCA/circumflex territory 2. Normal LV ejection fraction of 57%. 3. LV wall motion analysis revealing no gross wall motion abnormalities. 4. Normal LV volume No similar previous studies are available for comparison Dr Guerda Martínez MD FAC (Electronically Signed) Final Date: 13 September 2024 12:26 S
[2024-09-13 09:51] VITALS: BP 115/87; PULSE 81
== END 2024-09-13 07:46 | disposition home or self-care (01) ==
LOC: CDL 07:51
PROVIDERS: PCP Family Medicine; Visit Provider Family Medicine
DX: R07.9 Chest pain, unspecified (principal)
CPT/HCPCS: 36415; 78452; 93017; 96374; A9500; J2785

== ENCOUNTER → 2024-09-25 14:28 | Outpatient (BNVA) | payer MEDICARE, OTHER, SELFPAY | PROVIDERS: PCP Family Medicine; Visit Provider Internal Medicine Cardiovascular Disease | DX: I25.10 Atherosclerotic heart disease of native coronary artery without angina pectoris (principal); I10 Essential (primary) hypertension; E78.5 Hyperlipidemia, unspecified; Z79.82 Long term (current) use of aspirin; Z95.5 Presence of coronary angioplasty implant and graft; Z87.891 Personal history of nicotine dependence; R58 Hemorrhage, not elsewhere classified; R94.39 Abnormal result of other cardiovascular function study | CPT/HCPCS: 99214 ==

== ENCOUNTER 2024-10-10 05:51 | Outpatient (CLI) | payer MEDICARE, OTHER, SELFPAY ==
[2024-10-10] VITALS (16 sets, daily range): BP systolic 98–152; BP diastolic 60–93; PULSE 78–91; RESP 15–20; TEMP 36.6; O2SAT 90–95; BMI 27.7
--- NOTE | 2024-10-10 06:00 | XACV_ITS ---
Exam Room: 2 Ht: 188 cm Wt: 98 kg BSA: 2.28 m2 Gender: Male : 1950 Any Known Allergies: No known allergies Exam Priority: Routine Procedure(s): Procedure Description: Diagnostic procedure Procedure Description: Left Heart Catheterization Procedure Description: Left ventriculography Procedure Description: Coronary Angiography Aden GURROLA; Diagnostic Cath Status: Elective Conclusions 1. Left main has proximal 30% stenosis LAD has luminal irregularity with patent previously placed stent Diagonal branches has luminal irregularity without significant stenosis Left circumflex is nondominant with luminal irregularity without significant stenosis RCA is a dominant vessel with patent previously placed mid stent otherwise no significant stenosisLeft ventricular ejection fraction normal 65% no wall motion abnormalityNo aortic valve gradient. Recommendations * 1-Return to inpatient for close monitoring and routine cath care 2-Risk factor modification for secondary prevention 3-Statin and aspirin 81 mg life-long, if tolerated 4-Continue Plavix 75mg p.o. daily 5-Continue optimal medical management, add isosorbide mononitrate 6-Follow up with Dr. Samaniego as already scheduled. Diagnostic RX Recommendation: medical therapy and/or counseling LV EDP: 14 mmHg Ventriculography Ejection Fraction: 60.0 % Pressures Phase:Rest AO : 109 / 82 ( 96 ) @ 8:42:00 AM 111 / 84 ( 95 ) @ 8:43:00 AM 131 / 76 ( 101 ) @ 8:48:00 AM 130 / 76 ( 101 ) @ 8:48:00 AM LV : 126 / -9 / 14 @ 8:47:00 AM 122 / -7 / 13 @ 8:48:00 AM 122 / -6 / 15 @ 8:48:00 AM Valves Phase:DefaultPhase AV : 0.0 @ 7:55:19 AM 0.0 @ 7:55:19 AM AV Mean Gradient: 0.0 @ 7:55:19 AM Clinical Evaluation EBL: 5mL-10mL Procedural Details Pre-Procedure Time Out. Identified patient by full name and date of as verbalized by the patient/guarantor. Does the consent match the physician's order: Yes. Accurate & Complete Informed Consent: Yes. Inpatient/Outpatient History & Physical on Chart: Yes. If H&P is completed, is and addenduem needed: No; If yes, is the addendum complete: N/A. Visualize and Verify Site with Patient/Guarantor: N/A. Relevant Radiology Images available: Yes. Pre-op teaching completed and patient verbalized understanding. The risks, benefits, and alternatives of sedation and/or procedure were discussed by physician. The patient agrees to continue. Procedure started. Current Diagnosis : Chest Pain. [facility] Clinical Fraility Score: 3: Managing Well. [facility] Internship Indications: Worsening Angina. Chest Pain Symptom Assessment: Typical Angina Symptoms. Current diagnosis: Chest Pain. PERRLA. 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 Lungs clear x 5 lobes. IV Site on Arrival: 20 gauge in the right anticubital. IV Fluids: 0.9% NaCl at KVO. 0 mL infused prior to laboratory immunologist. Pre Procedural Pulses: bilateral dorsalis pedis was 2+. Pre Procedural Pulses: bilateral posterior tibial was 2+. Pre Procedural Pulses: bilateral radial was 3+. Oxygen started at 2liters/min via nasal canula. right groin was prepped with chloroprep then draped in the usual sterile fashion. right radial was prepped with chloroprep then draped in the usual sterile fashion. Baseline sample Acquired. HR: 80 BPM. Physician arrived. Physician scrubbed in. Immediate Pre-Procedure Time Out. Correct Patient: Yes; Correct Procedure: Yes; Correct Site: Yes; Correct Patient Position: Yes; Correct Supplies: Yes; Dried Flammable Prep: Yes; Blood Products Available: N/A;. Lidocaine 1% infiltrated to the right radial. Arterial access obtained. A 5 panamanian Sanchez catheter in over wire. Multiple views taken of right coronary artery. Catheter redirected to the LCA. Multiple views taken of left coronary artery. Catheter removed over the exchange wire. A 5 panamanian Angled Pig catheter in over wire. EDP Sample taken: LV 126/-10,14; HR: 78 BPM; SpO2: 92%. LV gram performed in WILLSON @ 10 mL/second for a total of 30 mL. EDP Sample taken: LV 122/-8,13; HR: 86 BPM; SpO2: 92%. Pullback taken: LV 122/-7,15; AO 131/76(101); Mean: 0mmHg, Peak to Peak: 0mmHg, SEP: 7sec/min; HR: 82 BPM; SpO2: 92%. Catheter removed over the exchange wire. A TR Band was successful obtaining hemostatsis at the Right Radial artery insertion site. Vital chart was stopped. Post Procedure: Pulses reassessed and unchanged. PERRLA. 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 No VTE prophylaxis required. Medication's Wasted: Other = Fentanyl 25 mcg. Medication's Wasted: Lidocaine 1% = 18 mL. Medication's Wasted: Nitro = 49.8 mg. Medication's Wasted: Heparin = 1000 units. Total IV fluids: 30 mL. Post-op diagnosis: Non-obstructive CAD. Complications: None. Estimated blood loss: 5mL-10mL. Responsiveness - Normal response to verbal stimuli; alert and oriented, PERRLA. Airway - Unaffected, no intervention required; spontaneous ventilation. Circulation: W/N/L, pulses unchanged. Nausea/Vomiting: No. Procedure completed. Patient transferred by stretcher to CPRU. Access Site Site: Right Radial artery Sheath Size: 6 Fr Hemostasis Method: TR Band Hemostasis Success: Successful Procedure Medications Start: 7:28 AM Stop: 7:28 AM Medication: Versed Amount: 1 mg Route: I.V. Start: 7:28 AM Stop: 7:28 AM Medication: Fentanyl Amount: 50 mcg Route: I.V. Start: 7:36 AM Stop: 7:36 AM Medication: Versed 1 mg and Fentanyl 25 mcg Amount: 1 Route: I.V. Start: 7:38 AM Stop: 7:38 AM Medication: Nitrogylcerin Amount: 200 mcg Route: I.A. Start: 7:40 AM Stop: 7:40 AM Medication: Heparin Amount: 5000 units Route: I.V. I, the attending physician, have reviewed and verified all procedure medications. Yes, all medications given per verbal order History/Risk Factors Hypertension: Yes Dyslipidemia: Yes Peripheral Arterial Disease (PAD): No Myocardial Infarction (VT): No Obesity: No Renal Disease: No Tobacco Use: Former Prior Interventions PCI: Yes CABG: No Valve Surgery: No Date of PCI: 03/01/2015 Report Signatures Finalized by Haley Samaniego MD on 10/10/2024 08:14 AM
[2024-10-10 06:22] LABS: Hematocrit 48.1 % (37-53); Hemoglobin 15.50 g/dL (11.27-16.99); Mean Corpuscular HGB Conc 32.2 g/dL (30-55); Mean Corpuscular Hemoglobin 29.5 pg (27-33); Mean Corpuscular Volume 91.4 fl (82-101); Nucleated Red Blood Cells % 0 %; Platelet Count 171 10^3/cmm (157-399); Red Blood Count 5.26 10^6/uL (3.85-5.65); White Blood Count 5.85 10^3/uL (3.29-11.43)
[2024-10-10 06:43] LABS: Anion Gap 12.5 (5-19); Blood Urea Nitrogen 16 mg/dL (8-23); Calcium 9.4 mg/dL (8.5-10.5); Carbon Dioxide 25 mmol/L (22-29); Chloride 107 mmol/L (98-107); Creatinine Clr Calc Pharmacy 62.4112; Glucose 114 mg/dL (65-115); Osmolality Calculated 292 mOsm/kg (285-295); Potassium 4.5 mmol/L (3.5-5.1); Sodium 140 mmol/L (136-145)
--- NOTE | 2024-10-10 07:26 | P.HPUD_ITS ---
Surgery/Procedure H&P Update DATE OF PROCEDURE: October 10, 2024 DATE H&P PERFORMED: 10/26/24 H&P UPDATE INFORMATION: I have reviewed H&P completed within last 30 days, I have examined patient prior to procedure and No changes to prior documentation PREOP DIAGNOSIS: Unstable angina PRIMARY INDICATION FOR PROCEDURE: Unstable angina despite of optimization of medicine, worsening of chest pain along with shortness of breath with increased in frequency and duration including rest, abnormal stress test PLANNED PROCEDURE: Operation Date: 10/10/24 07:00 Proposed Procedures p Cardiac Catheterization - [facility] w/wo LV & Coros(Left) - Haley Samaniego MD PATIENT REASSESSED PRIOR TO SEDATION, WITH NO CHANGE NOTED: Yes PHYSICAL EXAM: alert, oriented x 3, clear to auscultation bilaterally, regular rate & rhythm and operative site marked OTHER PERTINENT EXAM FINDINGS: All risk-benefit and alternative for the procedure has been explained to the patient. Patient understand 2% risk of stroke major bleed. Patient understand 5% risk of minor bleeding oozing infection hematoma contrast induced nephropathy pseudoaneurysm vascular or coronary artery bypass surgery. Patient understood and agrees to it. Patient would like to proceed with it. AIRWAY EVAL/ANESTHESIA PLAN: ASA II, Risks, benefits & alternatives of sedation and/or procedure discussed and Patient agrees to continue as planned
--- NOTE | 2024-10-10 08:10 | SUR.PHASEII ---
POST CATH NOTE Received patient from photo lab manager. Status post cardiac catheterization via the right radial approach. TR Band in place. Family at bedside. Dr Samaniego in to discuss finding with them. They understood well. See PCS documentat for assessments and detail. Call light within reach. Informed to call for needs.
--- NOTE | 2024-10-10 08:25 | SUR.PHASEII ---
IV fluids set at 100 ml/hr post cath per orders from .
== END 2024-10-10 11:41 | disposition home or self-care (01) ==
PROVIDERS: PCP Family Medicine; Visit Provider Internal Medicine Cardiovascular Disease
DX: I25.10 Atherosclerotic heart disease of native coronary artery without angina pectoris (principal); I10 Essential (primary) hypertension; E78.5 Hyperlipidemia, unspecified; Z87.891 Personal history of nicotine dependence; K21.9 Gastro-esophageal reflux disease without esophagitis
CPT/HCPCS: 36415; 80048; 85025; 93458; 99152; 99153; C1769; C1887; C1894; J1644; J2250; J3010; J3490; J7030; J9999; Q0163; Q9967

== ENCOUNTER → 2024-10-17 15:35 | Outpatient (BNVA) | payer MEDICARE, OTHER, SELFPAY | PROVIDERS: PCP Family Medicine; Visit Provider Internal Medicine Cardiovascular Disease | DX: I25.10 Atherosclerotic heart disease of native coronary artery without angina pectoris (principal); I10 Essential (primary) hypertension; E78.5 Hyperlipidemia, unspecified; Z95.5 Presence of coronary angioplasty implant and graft; Z87.891 Personal history of nicotine dependence | CPT/HCPCS: 99214 ==

== ENCOUNTER → 2024-11-30 07:58 | Outpatient (BNVA) | payer MEDICARE, OTHER, SELFPAY | PROVIDERS: PCP Family Medicine; Visit Provider Internal Medicine | DX: J44.9 Chronic obstructive pulmonary disease, unspecified (principal); R91.8 Other nonspecific abnormal finding of lung field; Z87.891 Personal history of nicotine dependence; R58 Hemorrhage, not elsewhere classified | CPT/HCPCS: 36415; 85025; 85610; 99204; Q3014 ==

== ENCOUNTER 2024-12-05 14:31 | Outpatient (CLI) | payer MEDICARE, OTHER, SELFPAY ==
--- NOTE | 2024-12-05 15:00 | CTR_ITS ---
PROCEDURE INFORMATION: Exam: CT Chest Without Contrast; Diagnostic Exam date and time: 12/05/2024 3:15 PM Age: 74 years old Clinical indication: Abnormal findings; Lung mass or nodule; Multiple nodules; Additional info: Lung nodules TECHNIQUE: Imaging protocol: Diagnostic computed tomography of the chest without contrast. Radiation optimization: All CT scans at this facility use at least one of these dose optimization techniques: automated exposure control; mA and/or kV adjustment per patient size (includes targeted exams where dose is matched to clinical indication); or iterative reconstruction. COMPARISON: CR XR chest 1V portable [id number] 09/04/2024 9:[address] from 05/24/2023. RADIATION DOSE METRICS: Total DLP (mGy-cm): 503.08 FINDINGS: Thyroid: Previously described thyroid cyst or nodule is not well defined today. Lungs: Again seen is the [id number] architectural changes centrilobular emphysema. There is mild bibasilar atelectasis or scarring. There remain multiple solid circumscribed pulmonary nodules. Largest nodule within the central aspect of the right lower lobe measures 8 mm on image 51 of series 3. Pleural spaces: Unremarkable. No pneumothorax. No pleural effusion. Heart: Unremarkable. No cardiomegaly. No pericardial effusion. Coronary arteries: There is prominent coronary artery calcification within the LAD. Lymph nodes: Unremarkable. No enlarged lymph nodes. Vasculature: The thoracic aorta is normal in caliber. There is mild marginal calcification. Adrenal glands: There are small bilateral adrenal gland adenomas. These are stable. The right adrenal adenoma measures 14 x 12 mm. The left adrenal adenoma measures 21 x 12 mm. Bones/joints: There is no acute osseous abnormality appreciated. Soft tissues: Unremarkable. CT/CT chest wo con [id number] IMPRESSION: 1. Multiple stable solid circumscribed pulmonary nodules. 2. Centrilobular emphysema 3. Bilateral adrenal adenomas COMMENTS: 1. The presence of pulmonary emphysema on CT is an independent risk factor for lung cancer. In the absence of a history or active diagnosis of lung cancer, it is recommended that this patient with emphysema be evaluated for enrollment in a low dose CT lung cancer screening program. 2. For patients at low risk (minimal or absent history of smoking and of other known risk factors), recommend CT Chest at 3-6 months, then consider CT Chest at 18-24 months. For patients at high risk (history of smoking or of other known risk factors), recommend CT Chest at 3-6 months, then CT Chest at 18-24 months. (Reference: Claudia) 3. Consistent with the [employer]'s Incidental Findings Committee white paper (J Am Dulce Radiol 2017): For any incidental adrenal lesion greater than or equal to 1 cm but less than or equal to 4 cm classified in this report as benign, likely benign, or containing fat (including classification as an adenoma or myelolipoma), no follow-up imaging is recommended per consensus recommendations based on imaging criteria. Further lab evaluation could be pursued if warranted based on clinical findings. REFERENCES: Claudia Alanis, et al. Guidelines for Management of Incidental Pulmonary Nodules Detected on CT Images: From the Fleisch[employer] Society 2017. Radiology. 2017;284(1):228-243.
== END 2024-12-05 14:32 | disposition home or self-care (01) ==
LOC: RAD 14:32
PROVIDERS: PCP Family Medicine; Visit Provider Internal Medicine
DX: J44.9 Chronic obstructive pulmonary disease, unspecified (principal); R91.8 Other nonspecific abnormal finding of lung field; J43.2 Centrilobular emphysema; D35.02 Benign neoplasm of left adrenal gland; D35.01 Benign neoplasm of right adrenal gland; R93.89 Abnormal findings on diagnostic imaging of other specified body structures; I25.10 Atherosclerotic heart disease of native coronary artery without angina pectoris; I70.0 Atherosclerosis of aorta
CPT/HCPCS: 71250

== ENCOUNTER → 2024-12-18 14:26 | Outpatient (BNVA) | payer MEDICARE, OTHER, SELFPAY | PROVIDERS: PCP Family Medicine; Visit Provider Internal Medicine | DX: J44.9 Chronic obstructive pulmonary disease, unspecified (principal); R91.8 Other nonspecific abnormal finding of lung field; D35.00 Benign neoplasm of unspecified adrenal gland; Z87.891 Personal history of nicotine dependence; J44.1 Chronic obstructive pulmonary disease with (acute) exacerbation | CPT/HCPCS: 99214; Q3014 ==